=== PATIENT | male | born 1945 | race Caucasian/White ===

== ENCOUNTER 2023-06-20 14:54 | Inpatient (IN) | payer MEDICARE, OTHER, SELFPAY ==
[2023-06-20] VITALS (9 sets, daily range): BP systolic 129–182; BP diastolic 69–85; PULSE 74–81; RESP 18–23; TEMP 36.8–39.8; O2SAT 92–95; BMI 28.6; BMI 26.5
--- NOTE | 2023-06-20 15:24 | EKG12_ITS ---
Test Reason : Blood Pressure : / mmHG Vent. Rate : 079 BPM Atrial Rate : 000 BPM P-R Int : 000 ms QRS Dur : 144 ms QT Int : 404 ms P-R-T Axes : 000 005 011 degrees QTc Int : 463 ms Atrial fibrillation Right bundle branch block Abnormal ECG Confirmed by CANDY MARIE, DANE ([id number]), editor newspaper EMELIA QUEVEDO ([id number]) on 06/22/2023 1:25:25 PM Referred By: Confirmed By:DANE GUPTA MD
--- NOTE | 2023-06-20 15:25 | EDS_ITS ---
HPI History of Present Illness Chief Complaint: Hypertension Narrative Narrative: 78-year-old male in town for his brother's presenting with chest pain. He states the onset of the chest pain was about 9 AM this morning upon awakening. He describes it as a slap in the chest. It has been present all day in the center of his chest. He complained to his family of some right arm pain but he currently states it does not radiate from his chest to his arm. He is not lightheaded or dizzy although he does have a headache and he had some nausea earlier. Patient has not had any fevers, chills at home. Patient is a poor informant but his daughter gives pertinent history. He has a past medical history of agent orange exposure, A-fib, CHF, CAD, hypertension, diabetes, dementia, hyperlipidemia. Patient is on Eliquis. No black or bloody stools. Patient apparently has end-stage renal disease and had a peritoneal dialysis port placed 2 Wednesdays ago. The plan is for this to be used next week upon returning home. Patient denies any abdominal pain. He states his incision sites do not hurt. He still makes urine but denies dysuria or hematuria. Patient's daughter does state that he has had dyspnea on exertion for about 2 weeks which is progressively worse. She does not describe orthopnea. [facility] Medical History Peritoneal dialysis catheter in place Home Medications apixaban 5 mg tablet (Eliquis) 5 mg PO BID 06/20/23 [History Last Taken 06/20/23] atorvastatin 20 mg tablet 20 mg PO QHS 06/20/23 [History Last Taken 06/19/23] calcitriol 0.25 mcg capsule 0.25 mcg PO DAILY 06/20/23 [History Last Taken 06/20/23] donepezil 10 mg tablet 10 mg PO DAILY Memory 06/20/23 [History Last Taken 06/20/23] duloxetine 30 mg capsule,delayed release (Cymbalta) 30 mg PO DAILY 06/20/23 [History Last Taken 06/20/23] fenofibrate 150 mg capsule 145 mg PO DAILY 06/20/23 [History Last Taken ] ferrous sulfate 325 mg (65 mg iron) tablet 325 mg PO DAILY 06/20/23 [History Last Taken Unknown] furosemide 20 mg tablet 20 mg PO TID 06/20/23 [History Last Taken Unknown] hydralazine 100 mg tablet 100 mg PO TID 06/20/23 [History Last Taken Unknown] isosorbide mononitrate 30 mg tablet,extended release 24 hr 30 mg PO DAILY 06/20/23 [History Last Taken Unknown] metoprolol succinate 25 mg tablet,extended release 24 hr 25 mg PO DAILY 06/20/23 [History Last Taken Unknown] mirtazapine 30 mg tablet 30 mg PO QHS Depression 06/20/23 [History Last Taken 06/19/23] nifedipine 90 mg tablet,extended release 90 mg PO DAILY 06/20/23 [History Last Taken 06/20/23] primidone 50 mg tablet (Mysoline) 50 mg PO Q8H Blood pressur 06/20/23 [History Last Taken 06/20/23] Allergy/AdvReac Type Severity Reaction Status Date / Time No Known Allergies Allergy Verified 06/20/23 15:43 Social History Smoking Status: Never smoker ROS ROS ED Constitutional Constitutional ED: Denies chills or fever(s) Eyes Eyes: Denies change in vision ENT ENT ED: Denies rhinorrhea or sore throat Cardiovascular Cardiovascular: Reports chest pain Respiratory/Chest Respiratory/Chest: Reports cough and dyspnea Gastrointestinal Gastrointestinal: Reports diarrhea and nausea; Denies abdominal pain or vomiting Genitourinary Genitourinary ED: Denies dysuria or hematuria Musculoskeletal Musculoskeletal: Denies arthralgias or neck pain Integumentary Denies abscess Neurologic Neurologic: Reports headache(s); Denies paresthesias or weakness Psychiatric Psychiatric: Denies anxiety or depression EXAM Physical Exam Const Vital Signs: 06/20/23 14:57 06/20/23 15:10 06/20/23 15:42 Temperature 100.9 F H 103.6 F H Temperature Source Temporal Oral Pulse Rate 76 Respiratory Rate 19 H Respiratory Effort Short of Breath Respiratory Pattern Normal Blood Pressure 182/85 H Blood Pressure Mean 117 Pulse Ox 94 Oxygen Delivery Method Room Air 06/20/23 16:59 06/20/23 17:08 06/20/23 17:08 Temperature 98.3 F 100.8 F H Temperature Source Oral Temporal Pulse Rate 79 Respiratory Rate 19 H Respiratory Effort Respiratory Pattern Blood Pressure 157/76 H Blood Pressure Mean 103 Pulse Ox 92 Oxygen Delivery Method Room Air Positive well nourished General Appearance ED: NAD; Negative for pallor HEENT Reports moist mucous membranes Eyes PERRL and EOMs intact bilaterally General Eye ED: Negative for pale conjunctiva Neck no lymphadenopathy Chest Wall inspection of chest normal Resp Resp Narrative: Slightly tachypneic Effort and Inspection: Negative for retractions Auscultation: diminished lung sounds left lower Cardio regular rate and regular rhythm GI normal to inspection, nondistended, normoactive bowel sounds GI Narrative: Peritoneal dialysis catheter placed in the left side abdomen. No surrounding induration or erythema. Abdomen soft. No peritoneal signs. Dressings clean, dry, intact Extremity normal to inspection General Extremety ED: Negative for edema or tenderness General Extremity: Negative for edema Neuro oriented x3 and CN's II-XII intact bilaterally Sensorium / Orientation: alert Psych mental status grossly normal Skin no rashes or lesions noted General Skin Exam: Negative for jaundice or pallor MDM MDM MDM Narrative Medical decision making narrative: Patient presenting with fever, chest pain, shortness of breath x 2 weeks. Patient was at a and chest pain started. Is been present for about 6 hours prior to arrival. Differential includes ACS, CHF, A-fib, dehydration, electrolyte abnormalities, pneumonia, COVID, influenza, peritonitis, UTI. CBC was obtained to assess white blood cell count, hemoglobin, platelets. BMP to assess renal function, electrolytes, glucose. Liver function panel to assess for transaminitis. High-sensitivity troponin and delta troponin to assess for cardiac ischemia. EKG to assess for dysrhythmia/ischemia. Chest x-ray to rule out pneumonia. Urinalysis to rule out UTI. Patient's physical exam unremarkable. Other than some diminished breath sounds in left lung base. Abdomen soft nontender nondistended. There is no evidence of peritonitis. CBC shows white blood cell count of 10.4. Hemoglobin 10.0. Platelets 331. No comparison labs as patient is from out of town. Creatinine 4.38 consistent with end-stage renal disease. Calcium slightly high at 5.5. EKG was obtained and on my interpretation shows atrial fibrillation with a ventricular rate of 79 bpm without sign of ischemia or evidence of hyperkalemia on EKG. BNP elevated at 585. Urinalysis negative for infection. Patient's fever was treated with a gram of Tylenol. This did come down to 100.9. He felt better after the fever resolved. He was given IV fluids. COVID and influenza were negative. PCR COVID was sent and this is also negative. Chest x-ray my interpretation showed concern for left lower lobe infiltrate. The radiologist interprets this and agrees. We obtained a CT of the chest abdomen pelvis to rule out pneumonia or other acute abdominal pathology given the fever and the fairly normal workup so far. Chest CT did show left lower lobe pneumonia. The abdominal CT did not show anything acute. Given this I tried to ambulate the patient to see if he is hypoxic and he is too weak to stand. I discussed this with the hospitalist who felt patient could stay. Will start him on Zosyn for his pneumonia. This was d iscussed with his daughter and she is amenable to keeping him here. High- sensitivity troponin came back at 44 and delta troponin 56. Impression: 1. Chest pain 2. Febrile illness 3. Pneumonia 4. Debility 5. Hyperkalemia 6. End-stage renal disease Lab Data Labs: Laboratory Results - last 24 hr 06/20/23 06/20/23 06/20/23 15:00 16:32 18:00 WBC 10.4 RBC 3.01 L Hgb 10.0 L Hct 31.3 L MCV 104.0 H MCH 33.2 H MCHC 31.9 L RDW Std Deviation 50.4 H RDW Coeff of Johnathan 13.3 Plt Count 331 MPV 10.1 Immature Gran % (Auto) 0.300 Neut % (Auto) 89.2 H Lymph % (Auto) 1.9 L [place] % (Auto) 5.9 Eos % (Auto) 2.4 Baso % (Auto) 0.3 Absolute Neuts (auto) 9.3 H Absolute Lymphs (auto) 0.20 L Nucleated RBC % 0 Differential Comment SCANNED Sodium 136 Potassium 5.5 H Chloride 104 Carbon Dioxide 25.0 Anion Gap 7 BUN 80 H Creatinine 4.38 H Estim Creat Clear Calc 14.12 Est GFR (MDRD) Af Amer 17 L Est GFR (MDRD) Non-Af 14 L BUN/Creatinine Ratio 18.3 Glucose 125 H Calcium 9.2 Phosphorus 3.8 Magnesium 2.3 Total Bilirubin 0.50 Direct Bilirubin 0.16 AST 27 ALT 20 Alkaline Phosphatase 29 L Total Creatine Kinase 88 Troponin I High Sens 44 56 B-Natriuretic Peptide 595.6 H Total Protein 7.7 Albumin 3.5 Globulin 4.2 Urine Color Yellow Urine Clarity Clear Urine pH 6.0 Ur Specific [place] 1.015 Urine Protein 500 H Urine Glucose (UA) Normal Urine Ketones Negative Urine Occult Blood Negative Urine Nitrite Negative Urine Bilirubin Negative Urine Urobilinogen Normal Ur Leukocyte Esterase Negative Urine RBC 0 SEEN Urine WBC 0 SEEN Ur Squamous Epith Cells 0-5 SEEN Urine Bacteria 0 SEEN Hyaline Casts 0-5 SEEN Urine Mucus 0 SEEN Radiography Diagnostic Testing: Clinical Impression(s) from Imaging Studies Chest X-Ray 06/20/23 16:17 IMPRESSION: ASHD and mild hyperinflation. Probable left lower lobe atelectasis or infiltrate Electronically Signed: Pete Stinson MD at 16:48 EST , Chest/Abdomen/Pelvis CT 06/20/23 17:29 IMPRESSION: Mild left lower lobe atelectasis or infiltrate Nonspecific ileus with diffuse fecal retention in colon Diverticular disease of the descending and sigmoid colon without evidence for acute diverticulitis Multiple bilateral renal cysts several of which appear hemorrhagic. MRI would be helpful to exclude possibility of coexisting solid nodule. Electronically Signed: Pete Stinson MD at 18:36 EST , Discharge Plan Disposition Disposition: Acute Care Hospital [facility] Discharge Date/Time: 06/20/23 19:45
--- NOTE | 2023-06-20 15:30 | NURSING ---
NO OLD EKGS
[2023-06-20] MEDS: Acetaminophen 500 MG Tablet 1000 MG PO (15:40)
[2023-06-20 15:41] LABS: Absolute Neutrophil Count 9.3 X10^3/uL (2.0-7.7); Basophil# 0.03 X10^3/uL; Basophil% 0.3 % (0-1); Eosinophil# 0.25 X10^3/uL; Eosinophils% 2.4 % (0-5); Hematocrit 31.3 % (40-54); Lymphocyte % 1.9 % (19-41); Mean Corp Hgb Conc 31.9 g/dL (32-36); Mean Corpuscular Hgb 33.2 pg (27.0-32.0); Mean Platelet Vol. 10.1 fl (6.2-12.0); Monocyte# 0.61 X10^3/uL; Monocyte% 5.9 % (0-10); NRBC Flagged by Analyzer 0 % (0-5); Neutrophil # 9.29 X10^3/uL (2.7-7.7); Neutrophil % 89.2 % (47-70); POSITIVE DIFFERENTIAL YES; Platelet Count 331 K/mm3 (150-450); RBC Distribution Width CV 13.3 % (11.6-14.6); RBC Distribution Width SD 50.4 fl (35.1-43.9); Red Blood Count 3.01 M/mm3 (4.6-6.2); White Blood Count 10.4 K/mm3 (4.4-11.0)
[2023-06-20 15:49] LABS: Differential Indicated SCAN CRITERIA MET
[2023-06-20 15:53] LABS: AST(SGOT) 27 U/L (15-37); Alanine Aminotransfer ALT/SGPT 20 U/L (16-61); Albumin, Serum 3.5 g/dL (3.2-5.0); Alkaline Phosphatase 29 U/L (45-117); Anion Gap 7 (5-15); BUN 80 mg/dL (7-18); BUN/Creat Ratio 18.3 RATIO (10-20); Bilirubin, Direct 0.16 mg/dL (0.00-0.30); Calcium,Total 9.2 mg/dL (8.5-10.1); Chloride 104 mmol/L (98-107); Creatinine, Serum 4.38 mg/dL (0.70-1.30); EST Glomerular Filtration Rate 14 mL/min (>60); Est Glom Filt Rate - Afr Amer 17 mL/min (>60); Estimated Creatinine Clearance 14.12 ml/min; Globulin 4.2 g/dL (2.2-4.2); Glucose 125 mg/dL (74-106); Potassium 5.5 mmol/L (3.5-5.1); Protein, Total 7.7 g/dL (6.4-8.2); Sodium Level 136 mmol/L (136-145); Troponin-I HS (w/2H Reflex) 44 pg/mL (3.0-78.0)
--- NOTE | 2023-06-20 16:17 | RAD_ITS ---
STUDY: X-RAY CHEST REASON FOR EXAM: Male, 78 years old. chest pain TECHNIQUE: AP portable COMPARISON: None. FINDINGS: Lungs are hyperinflated. There is probable chronic interstitial scarring in the right lower lobe and mild left lower lobe atelectasis or infiltrate Heart is enlarged.. Normal mediastinum and gabbi. Normal visualized pulmonary arteries. Mildly calcified aortic arch and descending thoracic aorta. Dorsal spine demonstrates degenerative change. There is a shoulder prosthesis on the right and degenerative changes on the left. Normal visualized ribs, and clavicles. There is no demonstrated abnormality of the visualized soft tissue structures of the upper abdomen. RAD/Chest 1 View (Portable) IMPRESSION: ASHD and mild hyperinflation. Probable left lower lobe atelectasis or infiltrate Electronically Signed: Pete Stinson MD at 16:48 EST ,
[2023-06-20 16:20] LABS: Differential Comment SCANNED
[2023-06-20 16:38] LABS: Bacteria 0 SEEN /hpf (None Seen); Mucous, Urine 0 SEEN /hpf (<or=2+); Red Blood Cells-Urine 0 SEEN /hpf (0-5); White Blood Cells 0 SEEN /hpf (0-5)
[2023-06-20 16:40] LABS: Color, Urine Yellow (Yellow); Glucose, Dipstick Normal (Normal); Ketone-Dipstick Negative (Negative); Leukocyte Esterase-Dipstick Negative /ul (Negative); Nitrite-Dipstick Negative (Negative); Occult Blood-Urine Negative /ul (Negative); Protein-Dipstick 500 mg/dl (Negative); Specific Gravity, Urine 1.015 (1.002-1.030); Urine Bilirubin Dipstick Negative (Negative); Urine Clarity Clear (Clear); Urine Urobilinogen Normal (Normal)
[2023-06-20 16:50] LABS: BNP,B-Type NATRIURETIC PEPTIDE 595.6 pg/mL (0-100)
[2023-06-20 16:51] LABS: Hyaline Cast 0-5 SEEN /lpf (0-5); Squamous Epithelial Cells - UA 0-5 SEEN /hpf (0-5)
[2023-06-20] MEDS: Aspirin 81 MG TAB.CHEW 324 MG PO (16:55)
--- NOTE | 2023-06-20 17:29 | CT_ITS ---
STUDY: CT CHEST, ABDOMEN T PELVIS WITHOUT CONTRAST REASON FOR EXAM: Male, 78 years old. chest pain RADIATION DOSAGE (If Supplied By Facility): CTDIvol = ( 21.09 ) mGy, DLP = ( 1852.50 ) mGycm TECHNIQUE: Transaxial imaging was performed without the administration of intravenous contrast material. Individualized dose optimization techniques were used for this CT. COMPARISON: No relevant priors. FINDINGS: CHEST Mild left lower lobe atelectasis or infiltrate. There is no demonstrated pleural abnormality. Heart is enlarged and there is mild multivessel coronary artery calcification Normal mediastinum. Normal hilar regions. Normal unenhanced pulmonary arteries. Atherosclerotic change of the aorta without evidence for aneurysm Dorsal spine demonstrates advanced arthritic changes . ABDOMEN The visualized lung bases are unremarkable. The visualized portions of the heart are within normal limits. Normal liver. Normal gallbladder and extrahepatic biliary system. Normal spleen. Normal pancreas. Normal bilateral adrenal glands. No evidence for renal obstruction. There are multiple cysts of varying sizes bilaterally some of which appear hemorrhagic. Possibility of solid nodule cannot be entirely excluded . Normal visualized stomach. Mild nonspecific ileus with diffuse fecal retention in the colon Diverticular changes of the descending and sigmoid colon without evidence for acute diverticulitis.. No evidence for acute appendicitis. Atherosclerotic changes of the aorta without evidence for aneurysm. Normal inferior vena cava. Normal retroperitoneum. Dialysis catheter placement entering the left lower anterior abdominal wall with the catheter curling above the dome of the bladder PELVIS Poorly distended thick walled bladder of uncertain significance There is no pelvic fluid. There is no pelvic lymphadenopathy or mass lesion. Normal visualized pelvic arteries. Bilateral fat-containing inguinal hernias larger on the right.. Lumbar spine demonstrates degenerative changes CT/CT Chest, Abd, Pelvis WO Cont IMPRESSION: Mild left lower lobe atelectasis or infiltrate Nonspecific ileus with diffuse fecal retention in colon Diverticular disease of the descending and sigmoid colon without evidence for acute diverticulitis Multiple bilateral renal cysts several of which appear hemorrhagic. MRI would be helpful to exclude possibility of coexisting solid nodule. Electronically Signed: Pete Stinson MD at 18:36 EST ,
[2023-06-20 17:31] LABS: Reflex Troponin-HS? (from REC) Y
--- NOTE | 2023-06-20 17:46 | NURSING ---
x2 RNs attempted to assist pt to stand for ambulatory pulse ox, pt very unsteady, shaking, lightheaded- assisted pt back to bed, Dr. Romero made aware
[2023-06-20 18:31] LABS: Troponin-I HS 56 pg/mL (3.0-78.0)
--- NOTE | 2023-06-20 18:57 | HP.PCM.HOS_ITS ---
HPI - General General Date of Admission: 06/20/23 Date of Service: 06/20/23 Chief Complaint: Chest pain left-sided with high blood pressure and fever HPI Narrative MATY REDDY, is a 78 M with multiple comorbidities listed below who was bro ught to ED by EMS for chest pressure. Patient was then of his brother and was noticed to have uncontrollable shakes, he complained of mild chest pressure on the left side and of decreased responsiveness. History mainly taken from her daughter near the bedside. Her daughter said patient was often closing his eyes and was shaking. Patient himself poor historian at most described that it was like a heaviness on the left upper abdomen/left lower chest, localized without radiation, mild to moderate in quality without aggravating or relieving factor but gradually improving in ED. Patient has chronic right shoulder pain and had right shoulder replacement/surgery many years ago. Patient also gets dizzy lightheaded on standing up. EMS noted that patient had high blood pressure 228/108, heart rate 89. In ED patient was noticed to have high fever, Tmax 103 Fahrenheit. The daughter he was exposed to the agent orange in [place] about 40 years ago and since then his blood pressure fluctuates high and low and he is on 4 different antihypertensive medications. Recently nifedipine has been added and has been controlling better. As per the daughter he did not had recent acute sickness but I noticed cough. Patient had mild dyspnea on exertion for about 2 weeks progressively getting worse but denies orthopnea or PND. Past medical history: Uncontrolled hypertension, chronic A-fib on anticoagulant, dyslipidemia, anxiety and depression, ESRD dialysis catheter inserted about 2 weeks ago. He is not distended on dialysis. His daughter denies any history of cardiac stent/CT Mild hyperkalemia, K5.5 but EKG does not show acute tall T wave changes. Twelve-lead EKG individually reviewed and shows A-fib, RBBB, QRS 144 ms, QTc 463 ms. Similar EMS EKG. Labs and imaging reviewed and discussed in assessment and plan. [facility] Medical History Peritoneal dialysis catheter in place Home Medications apixaban 5 mg tablet (Eliquis) 5 mg PO BID 06/20/23 [History Last Taken 06/20/23] atorvastatin 20 mg tablet 20 mg PO QHS 06/20/23 [History Last Taken 06/19/23] calcitriol 0.25 mcg capsule 0.25 mcg PO DAILY 06/20/23 [History Last Taken 06/20/23] donepezil 10 mg tablet 10 mg PO DAILY Memory 06/20/23 [History Last Taken 06/20/23] duloxetine 30 mg capsule,delayed release (Cymbalta) 30 mg PO DAILY 06/20/23 [History Last Taken 06/20/23] fenofibrate 150 mg capsule 145 mg PO DAILY 06/20/23 [History Last Taken 06/20/23] ferrous sulfate 325 mg (65 mg iron) tablet 325 mg PO DAILY 06/20/23 [History Last Taken Unknown] furosemide 20 mg tablet 20 mg PO TID 06/20/23 [History Last Taken Unknown] hydralazine 100 mg tablet 100 mg PO TID 06/20/23 [History Last Taken Unknown] isosorbide mononitrate 30 mg tablet,extended release 24 hr 30 mg PO DAILY 06/20/23 [History Last Taken Unknown] metoprolol succinate 25 mg tablet,extended release 24 hr 25 mg PO DAILY 06/20/23 [History Last Taken Unknown] mirtazapine 30 mg tablet 30 mg PO QHS Depression 06/20/23 [History Last Taken 06/19/23] nifedipine 90 mg tablet,extended release 90 mg PO DAILY 06/20/23 [History Last Taken 06/20/23] primidone 50 mg tablet (Mysoline) 50 mg PO Q8H Blood pressur 06/20/23 [History Last Taken 06/20/23] Allergy/AdvReac Type Severity Reaction Status Date / Time No Known Allergies Allergy Verified 06/20/23 15:43 Social History Smoking Status: Never smoker ROS ROS Narrative Patient mild lethargic and mild forgetfulness, possible dementia therefore ROS mainly as from her daughter, contributed by the patient. Constitutional: Reports fatigue and weakness. Fever as described in HPI HEENT: Reports systems reviewed and no addt'l complaints, except as documented Respiratory/Chest: As described in HPI. No wheezing. Mild cough. CVS: As described in HPI Gastrointestinal: Denies coffee ground emesis, hematemesis or vomiting Genitourinary: No acute change in amount urine output. Denies burning urination or new urinary tract symptoms Musculoskeletal: Chronic left shoulder pain status post surgery. Denies acute joint pain or limited range of motion. No acute injury Neurologic: Denies seizure-like symptoms. Decreased responsiveness. skin: No ulcer. No rash Endocrinology: Reports systems reviewed and no addt'l complaints, except as documented Hematologic/Lymphatic: Reports systems reviewed and no addt'l complaints, except as documented Rest 14 ROS are negative except as mentioned in HPI. Vital Signs Vital Signs Vital Signs: 06/20/23 14:57 06/20/23 15:10 06/20/23 15:42 Temperature 100.9 F H 103.6 F H Temperature Source Temporal Oral Pulse Rate 76 Respiratory Rate 19 H Respiratory Effort Short of Breath Respiratory Pattern Normal Blood Pressure 182/85 H Blood Pressure Mean 117 Pulse Ox 94 Oxygen Delivery Method Room Air 06/20/23 16:59 06/20/23 17:08 06/20/23 17:08 Temperature 98.3 F 100.8 F H Temperature Source Oral Temporal Pulse Rate 79 Respiratory Rate 19 H Respiratory Effort Respiratory Pattern Blood Pressure 157/76 H Blood Pressure Mean 103 Pulse Ox 92 Oxygen Delivery Method Room Air Weight Weight: 199 lb 8 oz Body Mass Index (BMI) 28.6 Physical Exam Narrative General: Awake, alert but mild lethargy. Oriented x3, Cooperative HEENT: Atraumatic, PERRLA, EOMI, Normocephalic Oral: Oral mucosa dry. No Gingival or Mucosal Lesions/ Ulcerations Neck: Supple, No JVD, Negative Carotid Bruits Lungs: Air entry diminished in bilateral lung bases. No crepitation/rhonchi Cardiovascular: Irregular rate and rhythm, Normal S1, Normal S2, No murmurs Abdomen: Bowel Sounds Present, Soft, mild tenderness on right side but no guardi ng, rigidity or rebound tenderness. No tenderness on left side where peritoneal catheter is inserted. No peritoneal signs elicited. : Dialysis catheter. Not a started on dialysis yet. Dark urine. No renal angle tenderness. No suprapubic tenderness. Extremities: No edema, Capillary Refill Less than 3 Seconds Skin: No rashes, No breakdown Musculoskeletal: No Tenderness to Palpation of Joints or Extremities. Chronic right shoulder tenderness. Neurological: Cranial nerves II-XII grossly intact, DTR 2+/4. No acute focal neurological deficit. Psych/Mental Status: Flat affect. Possible amnesia/early dementia Results Lab / Micro Data 06/20/23 15:00 06/20/23 15:00 Labs: Laboratory Results - last 24 hr 06/20/23 15:00: WBC 10.4, RBC 3.01 L, Hgb 10.0 L, Hct 31.3 L, MCV 104.0 H, MCH 33.2 H, MCHC 31.9 L, RDW Std Deviation 50.4 H, RDW Coeff of Johnathan 13.3, Plt Count 331, MPV 10.1, Immature Gran % (Auto) 0.300, Neut % (Auto) 89.2 H, Lymph % (Auto) 1.9 L, [place] % (Auto) 5.9, Eos % (Auto) 2.4, Baso % (Auto) 0.3, Absolute Neuts (auto) 9.3 H, Absolute Lymphs (auto) 0.20 L, Nucleated RBC % 0, Differential Comment SCANNED, Sodium 136, Potassium 5.5 H, Chloride 104, Carbon Dioxide 25.0, Anion Gap 7, BUN 80 H, Creatinine 4.38 H, Estim Creat Clear Calc 14.12, Est GFR (MDRD) Af Amer 17 L, Est GFR (MDRD) Non-Af 14 L, BUN/Creatinine Ratio 18.3, Glucose 125 H, Calcium 9.2, Total Bilirubin 0.50, Direct Bilirubin 0.16, AST 27, ALT 20, Alkaline Phosphatase 29 L, Troponin I High Sens 44, B-Natriuretic Peptide 595.6 H, Total Protein 7.7, Albumin 3.5, Globulin 4.2 06/20/23 16:32: Urine Color Yellow, Urine Clarity Clear, Urine pH 6.0, Ur Specific [place] 1.015, Urine Protein 500 H, Urine Glucose (UA) Normal, Urine Ketones Negative, Urine Occult Blood Negative, Urine Nitrite Negative, Urine Bilirubin Negative, Urine Urobilinogen Normal, Ur Leukocyte Esterase Negative, Urine RBC 0 SEEN, Urine WBC 0 SEEN, Ur Squamous Epith Cells 0-5 SEEN, Urine Bacteria 0 SEEN, Hyaline Casts 0-5 SEEN, Urine Mucus 0 SEEN 06/20/23 18:00: Troponin I High Sens 56 Micro: Microbiology 06/20/23 15:36 Nasal Secretion SARS-CoV-2 & FLU Antigen (Rapid) - Final Imagaing Radiology Impression Chest X-Ray 06/20/23 16:17 IMPRESSION: ASHD and mild hyperinflation. Probable left lower lobe atelectasis or infiltrate Electronically Signed: Pete Stinson MD at 16:48 EST Reading Location ID and State: [facility] / [place] Tel [phone], Service support , Chest/Abdomen/Pelvis CT 06/20/23 17:29 IMPRESSION: Mild left lower lobe atelectasis or infiltrate Nonspecific ileus with diffuse fecal retention in colon Diverticular disease of the descending and sigmoid colon without evidence for acute diverticulitis Multiple bilateral renal cysts several of which appear hemorrhagic. MRI would be helpful to exclude possibility of coexisting solid nodule. Electronically Signed: Pete Stinson MD at 18:36 EST , Assessment & Plan Assessment/Plan (1) Pneumonia: QUALIFIERS: Pneumonia type: due to unspecified organism Laterality: left Lung location: lower lobe of lung Qualified Code(s): J18.9 - Pneumonia, unspecified organism (2) Chest pain: PLAN: Plan This 78-year-old gentleman admitted for left-sided chest pain and pneumonia 1. Atypical chest pain seems probably from left lower lobe pneumonia: Patient is being admitted to PCU. As per daughter, he does not have CAD or CHF but has cardiomegaly and chronic A-fib. 2 by sensitive troponins are negative therefore ACS unlikely. BNP elevated. Workup for pneumonia ordered including blood culture. Patient is started on broad-spectrum IV antibiotic Zosyn. Conservative/limited IV fluid protocol due to history of ESRD. Lactic acid ordered. Bronchodilator as needed ordered. 2. Chronic A-fib, elevated BNP with suspicion of heart failure, exact type, classification and severity unclear: Patient is out of his state, [place]. No prior medical record available to review. Chest extends chest, abdomen and pelvis without contrast reviewed. Does not show pulmonary edema but left lower lobe infiltrate. No pelvic fluid. Dialysis catheter and in the left lower anterior abdominal wall. 2D echo is ordered. Patient on Lasix 20 mg 3 times daily to start from tomorrow. 3. ESRD with recent peritoneal dialysis catheter about 2 weeks ago: Clinically do not appreciate signs of peritonitis. [place] vehicle dismantler is consulted. 4. Uncontrolled hypertension, dyslipidemia: Home medications continued. 5. Hyperglycemia: A1c ordered for tomorrow. No clear-cut diagnosis of diabetes mellitus. 6. Anxiety and depression and dementia: Patient on mirtazapine and donezepil. Patient is on primidone, indication unclear; listed as hypertension but is only given for epilepsy and essential tremor. DVT prophylaxis on apixaban 5 mg twice daily. Living will/advanced directive/end of life care: The patient is accompanied by her daughter. Patient does have living will or advanced directive. Her daughter, Ms. Lindsay near the bedside is power of relays draftsperson for health. After discussion of benefits/risks procedures involved with full code, DNR CC arrest and DNR CC, the patient and her daughter opted for full code. Patient does want artificial life support including intubation, tube feed, ventilator and/chest compression, central venous catheter, vasopressor and DC shock if needed Total time spent in [id number] encounter in discussion of advanced directive 17 minutes. Charges/Coding Visit Charges Inpatient E&M: 74846 Init Hosp L3 Procedures Hospitalists Procedures: 88873 Advncd Care Plan 30 Min
[2023-06-20] MEDS: Piperacil/Tazobactam 3.375 GM in 0.9% Normal Saline (50mL MB+) 50 ML IV (19:41)
[2023-06-20] MEDS: 0.9% Normal Saline (1000mL) 1,000 ML 50 ML IV (20:11)
[2023-06-20 20:13] LABS: CPK Total, Creatine Kinase 88 U/L (39-308); Magnesium 2.3 mg/dL (1.6-2.6); Phosphorus 3.8 mg/dL (2.5-4.9)
[2023-06-20] MEDS: Sodium Polystyrene Sulfonate 15 GM/60 ML UDC 30 GM PO (20:51)
[2023-06-20] MEDS: APIXABAN 5 MG TABLET PO (20:52)
[2023-06-20] MEDS: hydrALAZINE 50 MG Tablet 100 MG PO (20:52)
[2023-06-20] MEDS: Atorvastatin Calcium 20 MG Tablet PO (20:52)
[2023-06-20] MEDS: Mirtazapine 30 MG Tablet PO (20:53)
[2023-06-20] MEDS: guaiFENesin/D-Methorphan TAB.SR.12H 2 TABLET PO (20:53)
[2023-06-20] MEDS: Primidone 50 MG Tablet PO (20:53)
[2023-06-20] MEDS: DULoxetine Hcl 60 MG Capsule PO (20:58)
--- NOTE | 2023-06-20 21:29 | EKG12_ITS ---
Test Reason : CP Blood Pressure : / mmHG Vent. Rate : 076 BPM Atrial Rate : 000 BPM P-R Int : 000 ms QRS Dur : 158 ms QT Int : 438 ms P-R-T Axes : 000 -04 006 degrees QTc Int : 492 ms Atrial fibrillation Right bundle branch block Abnormal ECG When compared with ECG of 20-JUN-2023 22:04, MANUAL COMPARISON REQUIRED, DATA IS UNCONFIRMED Confirmed by CANDY MARIE, DANE ([id number]), editor at large EMELIA QUEVEDO ([id number]) on 06/23/2023 10:59:51 AM Referred By: Confirmed By:DANE GUPTA MD
[2023-06-20 21:46] LABS: M R Staph aureus DNA By PCR Negative (Negative); Probe Check PASS; Specimen Processing Control PASS
[2023-06-20 22:18] LABS: International Normalized Ratio 1.4; Partial Thromboplast Time 63.5 Seconds (24.1-36.2); Prothrombin Time (Protime)PT. 17.1 SECONDS (11.7-14.9)
[2023-06-20 22:37] LABS: Troponin-I HS 54 pg/mL (3.0-78.0)
[2023-06-20 22:47] LABS: Lactic Acid 2.3 mmol/L (0.4-1.9)
[2023-06-21] VITALS (13 sets, daily range): BP systolic 132–197; BP diastolic 68–95; PULSE 65–96; RESP 16–18; TEMP 36.3–37.2; O2SAT 95–99
[2023-06-21 02:04] LABS: Reflex Lactate? Y
[2023-06-21 02:48] LABS: Absolute Lymphocyte Count 0.46 X10^3/uL (0.83-4.51); Absolute Neutrophil Count 14.2 X10^3/uL (2.0-7.7); Basophil# 0.05 X10^3/uL; Basophil% 0.3 % (0-1); Eosinophil# 0.17 X10^3/uL; Eosinophils% 1.1 % (0-5); Hematocrit 27.8 % (40-54); Hemoglobin 8.8 g/dL (13.0-16.5); Lymphocyte # 0.46 X10^3/ul (0.83-4.51); Lymphocyte % 2.9 % (19-41); Mean Corp Hgb Conc 31.7 g/dL (32-36); Mean Corpuscular Hgb 33.5 pg (27.0-32.0); Mean Corpuscular Volume 105.7 fL (80-94); Mean Platelet Vol. 9.6 fl (6.2-12.0); Monocyte# 1.13 X10^3/uL; NRBC Flagged by Analyzer 0 % (0-5); Neutrophil # 14.22 X10^3/uL (2.7-7.7); Neutrophil % 88.1 % (47-70); POSITIVE DIFFERENTIAL YES; Platelet Count 238 K/mm3 (150-450); RBC Distribution Width CV 13.5 % (11.6-14.6); RBC Distribution Width SD 52.6 fl (35.1-43.9); Red Blood Count 2.63 M/mm3 (4.6-6.2); White Blood Count 16.1 K/mm3 (4.4-11.0)
[2023-06-21 03:04] LABS: Anion Gap 7 (5-15); BUN 81 mg/dL (7-18); BUN/Creat Ratio 18.3 RATIO (10-20); Chloride 108 mmol/L (98-107); Creatinine, Serum 4.42 mg/dL (0.70-1.30); EST Glomerular Filtration Rate 14 mL/min (>60); Est Glom Filt Rate - Afr Amer 17 mL/min (>60); Estimated Creatinine Clearance 13.99 ml/min; Glucose 123 mg/dL (74-106); Potassium 4.3 mmol/L (3.5-5.1); Sodium Level 139 mmol/L (136-145)
[2023-06-21 03:06] LABS: Lactic Acid 0.7 mmol/L (0.4-1.9)
[2023-06-21 03:11] LABS: Differential Indicated SCAN CRITERIA MET
[2023-06-21 03:14] LABS: Differential Comment SCANNED
[2023-06-21] MEDS: Primidone 50 MG Tablet PO ×3 (04:31→20:52)
[2023-06-21] MEDS: hydrALAZINE 20 MG/ML Vial 10 MG IV (04:31)
[2023-06-21] MEDS: hydrALAZINE 50 MG Tablet 100 MG PO ×3 (04:31→20:52)
[2023-06-21] MEDS: Ferrous Sulfate 325 MG Tablet PO (09:56)
[2023-06-21] MEDS: Furosemide 20 MG Tablet PO ×3 (09:56→20:53)
[2023-06-21] MEDS: Donepezil HCl 10 MG Tablet PO (09:56)
[2023-06-21] MEDS: DULoxetine Hcl 30 MG Capsule PO (09:56)
[2023-06-21] MEDS: APIXABAN 5 MG TABLET PO ×2 (09:56→20:53)
[2023-06-21] MEDS: NIFEdipine 90 MG Tablet PO (09:57)
[2023-06-21] MEDS: guaiFENesin/D-Methorphan TAB.SR.12H 2 TABLET PO ×2 (09:57→20:52)
[2023-06-21] MEDS: Isosorbide Mononitrate 30 MG Tablet PO (09:57)
[2023-06-21] MEDS: Calcitriol 0.25 MCG Capsule PO (09:58)
[2023-06-21] MEDS: Metoprolol(XL)Succ 25 MG Tablet PO (09:58)
[2023-06-21] MEDS: Fenofibrate 145 MG Tablet PO (09:59)
[2023-06-21] MEDS: Piperacil/Tazobactam 3.375 GM in 0.9% Normal Saline (50mL MB+) 50 ML IV ×2 (10:04→20:52)
[2023-06-21] MEDS: Ensure Plus High Protein 120 ML LIQUID PO (11:46)
--- NOTE | 2023-06-21 12:56 | PCM.PN.HOSP ---
Reason for Visit Reason for Visit: Chest pain Subjective Subjective Mr. Levine is an 78-year-old male who presented to the emergency department at [facility] on 06/20/2023 with chest pain. Evidently the symptoms started at about 9 AM on the morning of awakening. He reported it as feeling like a slap in the anterior chest and it had been present all day in the center of his chest. He had complained to his family about some right arm pain but at time of presentation his pain in his chest did not radiate at all. He denied lightheadedness or dizziness but did have a headache and some nausea earlier that day. He denied diaphoresis. He denied any fever or chills and is from out of town but local at the time for his brother's . He has a past medical history of atrial fibrillation, heart failure of unknown type, CAD, hypertension, diabetes, dementia, hyperlipidemia and chronic dialysis with peritoneal dialysis. The port was placed about 2 and half weeks prior to presentation. He had no symptoms of the abdominal wall on presentation. His daughter did indicate on presentation that his shortness of breath with exertion has progressively gotten worse and over the last 2 weeks but she did not describe any orthopnea. Upon EMS arrival he had a blood pressure of 228/108 with a heart rate of 89. In the emergency department he was noted to be febrile with a temperature of 103 degrees, heart rate was 76, blood pressure was 182/85, respiratory rate was 19 and oxygen saturations were 94% on room air. His CBC showed an anemia and a left shift with an 89.2% neutrophilia but no white count on presentation. This morning his white count is up to 16,000 and with an 88.1% neutrophilia. He is anemia which appears to be chronic and stable however previous labs for review are unavailable. His lactic acid on admission was 2.3 but has resolved with treatment and his BMP was unremarkable other than a chronically elevated BUN and creatinine from his CKD. BNP on arrival was 595. His cardiac enzymes have been cycled and have been unremarkable x 3 at 44, 56, 54. His urine was unremarkable. MRSA PCR was negative. COVID and flu are negative. Urine culture is negative thus far. Strep pneumo and Legionella antigens remain pending. COVID PCR is negative. Respiratory viral panel was unremarkable. Sputum culture has not yet been able to be obtained and blood cultures are pending. He was admitted with suspect of infection being pneumonia and placed on Zosyn for broad coverage. Tmax since admission has been 98.5 with no recurrent fever. States he is feeling better. States he lives in [facility] but is a true [place] [employer] fan. States he is coughing up a lot of sputum however his nurse indicated she had not heard him cough or had any productive cough as of yet. His daughter was at the bedside earlier but is not there currently unfortunately. Objective Data Objective Data Vital Signs: Vital Signs Temp Pulse Resp BP Pulse Ox O2 Del Method O2 Flow Rate 97.4 F L 77 16 132/68 H 97 CPAP 95 06/21/23 09:53 06/21/23 09:58 06/21/23 09:53 06/21/23 09:58 06/21/23 09:53 06/21/23 09:53 06/21/23 10:39 Oxygen Flow Rate (L/min) 95 Oxygen Delivery Method CPAP Weight: 84 kg Body Mass Index (BMI) 26.5 Intake & Output: Intake and Output for Last 24 Hours 06/19/23 06/20/23 06/21/23 23:59 23:59 23:59 Intake Total 290 / 290 1068.33 / 1068.33 Balance 290 / 290 1068.33 / 1068.33 Lab / Micro Data 06/21/23 02:35 06/21/23 02:35 Labs: Laboratory Results - last 24 hr 06/20/23 15:00: WBC 10.4, RBC 3.01 L, Hgb 10.0 L, Hct 31.3 L, MCV 104.0 H, MCH 33.2 H, MCHC 31.9 L, RDW Std Deviation 50.4 H, RDW Coeff of Johnathan 13.3, Plt Count 331, MPV 10.1, Immature Gran % (Auto) 0.300, Neut % (Auto) 89.2 H, Lymph % (Auto) 1.9 L, [place] % (Auto) 5.9, Eos % (Auto) 2.4, Baso % (Auto) 0.3, Absolute Neuts (auto) 9.3 H, Absolute Lymphs (auto) 0.20 L, Nucleated RBC % 0, Differential Comment SCANNED, Sodium 136, Potassium 5.5 H, Chloride 104, Carbon Dioxide 25.0, Anion Gap 7, BUN 80 H, Creatinine 4.38 H, Estim Creat Clear Calc 14.12, Est GFR (MDRD) Af Amer 17 L, Est GFR (MDRD) Non-Af 14 L, BUN/Creatinine Ratio 18.3, Glucose 125 H, Calcium 9.2, Total Bilirubin 0.50, Direct Bilirubin 0.16, AST 27, ALT 20, Alkaline Phosphatase 29 L, Troponin I High Sens 44, B-Natriuretic Peptide 595.6 H, Total Protein 7.7, Albumin 3.5, Globulin 4.2 06/20/23 16:32: Urine Color Yellow, Urine Clarity Clear, Urine pH 6.0, Ur Specific [place] 1.015, Urine Protein 500 H, Urine Glucose (UA) Normal, Urine Ketones Negative, Urine Occult Blood Negative, Urine Nitrite Negative, Urine Bilirubin Negative, Urine Urobilinogen Normal, Ur Leukocyte Esterase Negative, Urine RBC 0 SEEN, Urine WBC 0 SEEN, Ur Squamous Epith Cells 0-5 SEEN, Urine Bacteria 0 SEEN, Hyaline Casts 0-5 SEEN, Urine Mucus 0 SEEN 06/20/23 18:00: Phosphorus 3.8, Magnesium 2.3, Total Creatine Kinase 88, Troponin I High Sens 56 06/20/23 20:15: MRSA (PCR) Negative 06/20/23 21:29: PT 17.1 H, INR 1.4, APTT 63.5 H 06/20/23 21:59: Lactic Acid 2.3 H*, Troponin I High Sens 54 06/21/23 02:35: WBC 16.1 H, RBC 2.63 L, Hgb 8.8 L, Hct 27.8 L, MCV 105.7 H, MCH 33.5 H, MCHC 31.7 L, RDW Std Deviation 52.6 H, RDW Coeff of Johnathan 13.5, Plt Count 238, MPV 9.6, Immature Gran % (Auto) 0.600, Neut % (Auto) 88.1 H, Lymph % (Auto) 2.9 L, [place] % (Auto) 7.0, Eos % (Auto) 1.1, Baso % (Auto) 0.3, Absolute Neuts (auto) 14.2 H, Absolute Lymphs (auto) 0.46 L, Nucleated RBC % 0, Differential Comment SCANNED, Sodium 139, Potassium 4.3, Chloride 108 H, Carbon Dioxide 24.0, Anion Gap 7, BUN 81 H, Creatinine 4.42 H, Estim Creat Clear Calc 13.99, Est GFR (MDRD) Af Amer 17 L, Est GFR (MDRD) Non-Af 14 L, BUN/Creatinine Ratio 18.3, Glucose 123 H, Lactic Acid 0.7, Calcium 9.0 Micro: Microbiology 06/20/23 16:32 Urine, Clean Catch Urine Culture - Preliminary Culture exhibits no growth. 06/20/23 18:58 Mucosa - Nasopharyngeal Respiratory Panel (PCR) - Final 06/20/23 18:58 Mucosa - Nasopharyngeal Coronavirus COVID-19 PCR - Final 06/20/23 15:36 Nasal Secretion SARS-CoV-2 & FLU Antigen (Rapid) - Final Radiography Diagnostic Testing: Radiology Impression Chest X-Ray 06/20/23 16:17 IMPRESSION: ASHD and mild hyperinflation. Probable left lower lobe atelectasis or infiltrate Electronically Signed: Pete Stinson MD at 16:48 EST , Chest/Abdomen/Pelvis CT 06/20/23 17:29 IMPRESSION: Mild left lower lobe atelectasis or infiltrate Nonspecific ileus with diffuse fecal retention in colon Diverticular disease of the descending and sigmoid colon without evidence for acute diverticulitis Multiple bilateral renal cysts several of which appear hemorrhagic. MRI would be helpful to exclude possibility of coexisting solid nodule. Electronically Signed: Pete Stinson MD at 18:36 EST , Physical Exam Const alert, no apparent distress and well nourished Constitutional Narrative: Older, overweight, white male, lying in bed, appears comfortable nontoxic, oriented to self and place but not time, mild confusion HEENT head/scalp atraumatic and moist oral mucous membranes HEENT Narrative: Mallampati 3, no thrush Head and Scalp: normocephalic Resp normal respiratory effort, no retractions, no use of accessory muscles and No clear to auscultation bilaterally Resp Narrative: Diminished at left base with few crackles but clear otherwise Auscultation: crackles; Negative for rhonchi or wheezes Cardio regular rate, regular rhythm, S1 normal heart sound, S2 normal heart sound, no murmurs, no rub, no gallops and no clicks GI normal to inspection, nondistended, normoactive bowel sounds and soft to palpation GI Narrative: Mild tenderness due to recent surgery, surgical incisions are clean dry and intact and left-sided abdominal peritoneal dialysis catheter with no signs of infection Extremity Extremity Narrative: Trace bilateral lower extremity edema that is pitting, pedal pulses are 2+ and bounding, no cyanosis or clubbing Neuro CN's II-XII intact bilaterally, moves all extremities and no focal motor deficits Sensorium / Orientation: awake, alert, oriented to person and oriented to place Speech: speech normal Psych affect normal Psych Narrative: Pleasant, interacts appropriately, eye contact is good Assessment & Plan Assessment/Plan (1) Chest pain: (2) Pneumonia: QUALIFIERS: Pneumonia type: due to unspecified organism Laterality: left Lung location: lower lobe of lung Qualified Code(s): J18.9 - Pneumonia, unspecified organism (3) Constipation: (4) Leukocytosis: (5) Lactic acidosis: (6) Elevated brain natriuretic peptide (BNP) level: PLAN: Plan Left lower lobe pneumonia -Patient febrile with Tmax of 103 -Infiltrate noted on chest abdomen and pelvis -Cultures are pending -Continue Zosyn -MRSA PCR is negative -Rapid and PCR for COVID are unremarkable -Flu is unremarkable -Respiratory viral panel was unremarkable -Strep pneumo and Legionella to antigens are pending -Patient now with significant leukocytosis and left shift today Lactic acidosis -Resolved with treatment of the above Chest pain -Cardiac enzymes unremarkable -EKG with chronic A-fib but no ST-T wave changes -Highly doubt cardiac and likely related from pneumonia -Echocardiogram pending for tomorrow Constipation -CT of the abdomen and pelvis is consistent with ileus versus constipation -Large volume of stool noted -Start MiraLAX twice daily and monitor for stool output Elevated BNP -Patient is on end-stage renal disease with peritoneal dialysis catheter placed 2 weeks ago -No signs of peritonitis -Unclear of what to make of an elevated BNP in the setting of chronic renal disease -No significant signs of volume overload on chest today or CT of the chest -Continue home Lasix -Echocardiogram ordered and will be performed tomorrow End-stage renal disease -PD catheter placed 2 weeks ago -After nephrology consulted -Continue home calcitriol Chronic A-fib -Continue home apixaban -Continue home metoprolol Uncontrolled hypertension -Continue home nifedipine -Continue home metoprolol -Continue isosorbide mononitrate -Continue hydralazine -Continue home primidone -Continue Lasix -As needed hydralazine available for systolic greater than 160 Hyperlipidemia -Continue home atorvastatin Chronic anemia -Monitor with drop however suspect related to volume given on presentation -Continue home iron supplementation -Repeat CBC in a.m. Depression -Continue home mirtazapine Dementia -Continue home donezepil DVT prophylaxis -Continue apixaban CODE STATUS -Full code as per discussion on admission
[2023-06-21] MEDS: Ipratropium/Albuterol Sulfate 3 ML AMPUL.NEB INHALATION (13:42)
[2023-06-21] MEDS: DULoxetine Hcl 60 MG Capsule PO (20:52)
[2023-06-21] MEDS: Atorvastatin Calcium 20 MG Tablet PO (20:53)
[2023-06-21] MEDS: Mirtazapine 30 MG Tablet PO (20:53)
--- NOTE | 2023-06-21 21:27 | PCM.CONS.R ---
Assessment & Plan Assessment/Plan (1) Stage 4 chronic kidney disease: PLAN: CKD stage 5. last eGFR 14. recently had PD catheter placed about 2 weeks ago he says. was last flushed about 3-4 days ago. currently no abdomen pain, no abdomen tenderness. low suspicion for peritonitis for now but since he spiked fever, if there is no source we can send PD fluid for analysis. IV lasix as per primary. may need higher doses due to low GFR. HPI Consult Data Date of Consult: 06/21/23 HPI Narrative Reason for Consultation: CKD 5 HPI Narrative: MATY REDDY, is a 78 M who presents to the hospital with chest pain/discomfort and fevers. renal consulted in view of CKD 5. He is from [facility]. was visiting [place] attend a in the family. apparently developed these symptoms while he was in and brought into ER. currently feels somewhat better but still not very great historian. still makes urine. denies any urinary complaints. no edema. PD catheter placed about 2 weeks ago he says. FORMERLY [facility], [facility] Medical History (Updated 06/21/23 @ 13:[address] Kait Ashraf, DO) CPAP (continuous positive airway pressure) dependence Kidney disease Non-smoker Peritoneal dialysis catheter in place Sleep apnea Home Medications apixaban 5 mg tablet (Eliquis) 5 mg PO BID 06/20/23 [History Last Taken 06/20/23] atorvastatin 20 mg tablet 20 mg PO QHS 06/20/23 [History Last Taken 06/19/23] calcitriol 0.25 mcg capsule 0.25 mcg PO DAILY 06/20/23 [History Last Taken 06/20/23] donepezil 10 mg tablet 10 mg PO DAILY Memory 06/20/23 [History Last Taken 06/20/23] duloxetine 30 mg capsule,delayed release (Cymbalta) 30 mg PO DAILY 06/20/23 [History Last Taken 06/20/23] fenofibrate 150 mg capsule 145 mg PO DAILY 06/20/23 [History Last Taken 06/20/23] ferrous sulfate 325 mg (65 mg iron) tablet 325 mg PO DAILY iron supplement 06/20/23 [History Last Taken 06/20/23] furosemide 20 mg tablet 20 mg PO TID 06/20/23 [History Last Taken Unknown] hydralazine 100 mg tablet 100 mg PO TID 06/20/23 [History Last Taken Unknown] isosorbide mononitrate 30 mg tablet,extended release 24 hr 30 mg PO DAILY unknown 06/20/23 [History Last Taken 06/20/23] metoprolol succinate 25 mg tablet,extended release 24 hr 25 mg PO DAILY bp 06/20/23 [History Last Taken 06/20/23] mirtazapine 30 mg tablet 30 mg PO QHS Depression 06/20/23 [History Last Taken 06/19/23] nifedipine 90 mg tablet,extended release 90 mg PO DAILY 06/20/23 [History Last Taken 06/20/23] primidone 50 mg tablet (Mysoline) 50 mg PO Q8H Blood pressur 06/20/23 [History Last Taken 06/20/23] Allergy/AdvReac Type Severity Reaction Status Date / Time No Known Allergies Allergy Verified 06/20/23 15:43 Social History Smoking Status: Never smoker ROS ROS Narrative negative except above Physical Exam Narrative Alert awake oriented x 3 no obvious distress no pallor no icterus no JVD s1s2 no murmurs lungs clear abdomen soft no organomegaly no edema no cyanosis Lab / Micro Data 06/21/23 02:35 06/21/23 02:35 Labs: Laboratory Results - last 24 hr 06/20/23 20:15: MRSA (PCR) Negative 06/20/23 21:29: PT 17.1 H, INR 1.4, APTT 63.5 H 06/20/23 21:59: Lactic Acid 2.3 H*, Troponin I High Sens 54 06/21/23 02:35: WBC 16.1 H, RBC 2.63 L, Hgb 8.8 L, Hct 27.8 L, MCV 105.7 H, MCH 33.5 H, MCHC 31.7 L, RDW Std Deviation 52.6 H, RDW Coeff of Johnathan 13.5, Plt Count 238, MPV 9.6, Immature Gran % (Auto) 0.600, Neut % (Auto) 88.1 H, Lymph % (Auto) 2.9 L, [place] % (Auto) 7.0, Eos % (Auto) 1.1, Baso % (Auto) 0.3, Absolute Neuts (auto) 14.2 H, Absolute Lymphs (auto) 0.46 L, Nucleated RBC % 0, Differential Comment SCANNED, Sodium 139, Potassium 4.3, Chloride 108 H, Carbon Dioxide 24.0, Anion Gap 7, BUN 81 H, Creatinine 4.42 H, Estim Creat Clear Calc 13.99, Est GFR (MDRD) Af Amer 17 L, Est GFR (MDRD) Non-Af 14 L, BUN/Creatinine Ratio 18.3, Glucose 123 H, Lactic Acid 0.7, Calcium 9.0 Micro: Microbiology 06/21/23 13:50 Sputum, Expectorated/Coughed Gram Stain - Final 06/20/23 16:32 Urine, Clean Catch Urine Culture - Preliminary Culture exhibits no growth. 06/20/23 16:32 Urine, Clean Catch Legionella Antigen - Final 06/20/23 16:32 Urine, Clean Catch Streptococcus pneumoniae Antigen (M - Final 06/20/23 18:58 Mucosa - Nasopharyngeal Respiratory Panel (PCR) - Final 06/20/23 18:58 Mucosa - Nasopharyngeal Coronavirus COVID-19 PCR - Final 06/20/23 15:36 Nasal Secretion SARS-CoV-2 & FLU Antigen (Rapid) - Final
[2023-06-22] VITALS (10 sets, daily range): BP systolic 148–160; BP diastolic 70–82; PULSE 66–81; RESP 16–18; TEMP 36.3–37.6; O2SAT 92–100
--- NOTE | 2023-06-22 04:47 | CPS ---
Pt using sleep lab machine 12 [facility]
[2023-06-22] MEDS: Primidone 50 MG Tablet PO ×3 (04:55→21:36)
[2023-06-22] MEDS: hydrALAZINE 50 MG Tablet 100 MG PO ×3 (04:55→21:37)
[2023-06-22] MEDS: Furosemide 20 MG Tablet PO ×3 (04:55→21:37)
--- NOTE | 2023-06-22 05:55 | ECHOD_ITS ---
Reason For Study: ATRIAL FIBRILLATION/ATRIAL FLUTTER Procedure This was a 2D Doppler, Color Flow transthoracic echocardiogram. Exam performed portable in patient room. Left Ventricle Mild concentric left ventricular hypertrophy. The estimated ejection fraction is 55-60 %. Right Ventricle Normal right ventricle. Normal systolic function. Atria The left atrium is moderately enlarged. The right atrium is mildly enlarged. Mitral Valve The mitral valve is structurally normal. No prolapse or stenosis seen. Mild (1+) mitral valve insufficiency. Tricuspid Valve Normal tricuspid valve. Mild tricuspid valve insufficiency. Pulmonic Valve The pulmonic valve is not well visualized. Great Vessels Normal aortic root. Pericardium/Pleural No pericardial effusion. MMode/2D Measurements & Calculations LVIDd: 5.7 cm IVSd: 1.3 cm Ao root diam: 3.7 cm LVIDs: 3.3 cm LVPWd: 1.2 cm RVDd: 3.7 cm FS: 42.5 % LAV(MOD-bp): 145.9 ml LVAd ap4: 34.7 cm2 LVAd ap2: 31.1 cm2 LAV(MOD-bp) Indexed: 72.3 ml/m2 LVLd ap4: 9.5 cm LVLd ap2: 9.4 cm LAV(MOD-sp2): 146.6 ml EDV(MOD-sp4): 109.7 ml EDV(MOD-sp2): 89.4 ml LAV(MOD-sp4): 146.3 ml EDV(sp4-el): 107.8 ml EDV(sp2-el): 87.0 ml LVAs ap4: 15.7 cm2 LVAs ap2: 15.0 cm2 LVLs ap4: 6.7 cm LVLs ap2: 7.0 cm ESV(MOD-sp4): 33.2 ml ESV(MOD-sp2): 32.2 ml ESV(sp4-el): 31.5 ml ESV(sp2-el): 27.1 ml EF(MOD-sp4): 69.8 % EF(MOD-sp2): 64.0 % EF(sp4-el): 70.7 % SV(MOD-sp4): 76.5 ml SV(MOD-sp2): 57.2 ml SV(sp4-el): 76.2 ml LA dimension(2D): 5.4 cm LA A4 area: 36.2 cm2 RA A4 area: 35.1 cm2 TAPSE: 2.8 cm Doppler Measurements & Calculations MV E max olman: 92.0 cm/sec Lat Peak E' Olman: 13.1 cm/sec Med Peak E' Olman: 10.6 cm/sec E/E' lat: 7.1 E/E' med: 8.7 Ao V2 max: 158.4 cm/sec LV V1 max: 114.2 cm/sec PA V2 max: 122.8 cm/sec Ao max P.0 mmHg LV V1 max P.2 mmHg PA V2 mean: 91.6 cm/sec Ao V2 mean: 106.3 cm/sec LV V1 mean P.0 mmHg Ao mean P.3 mmHg LV V1 mean: 81.1 cm/sec Ao V2 VTI: 31.4 cm LV V1 VTI: 23.1 cm AV (velocity ratio): 0.73 TR max olman: 339.9 cm/sec TR max P.2 mmHg ECHO/Echo Complete Interpretation Summary The estimated ejection fraction is 55-60 %. Normal LV systolic function No prior study to compare Ordering Physician: Richard Nascimento Referring Physician: ELVIA PCP Performed By: Lawanda Drake RDCS, RVT
[2023-06-22 06:36] LABS: Absolute Lymphocyte Count 0.55 X10^3/uL (0.83-4.51); Absolute Neutrophil Count 6.2 X10^3/uL (2.0-7.7); Basophil# 0.04 X10^3/uL; Basophil% 0.5 % (0-1); Eosinophil# 0.49 X10^3/uL; Eosinophils% 5.9 % (0-5); Hematocrit 27.4 % (40-54); Hemoglobin 8.5 g/dL (13.0-16.5); Lymphocyte # 0.55 X10^3/ul (0.83-4.51); Lymphocyte % 6.7 % (19-41); Mean Corpuscular Hgb 32.9 pg (27.0-32.0); Mean Corpuscular Volume 106.2 fL (80-94); Mean Platelet Vol. 10.5 fl (6.2-12.0); Monocyte# 0.91 X10^3/uL; NRBC Flagged by Analyzer 0 % (0-5); Neutrophil # 6.24 X10^3/uL (2.7-7.7); Neutrophil % 75.5 % (47-70); POSITIVE DIFFERENTIAL YES; Platelet Count 227 K/mm3 (150-450); RBC Distribution Width CV 13.5 % (11.6-14.6); RBC Distribution Width SD 52.8 fl (35.1-43.9); Red Blood Count 2.58 M/mm3 (4.6-6.2); White Blood Count 8.3 K/mm3 (4.4-11.0)
[2023-06-22 06:42] LABS: Differential Indicated SCAN CRITERIA MET
[2023-06-22 06:46] LABS: Anion Gap 10 (5-15); BUN 77 mg/dL (7-18); BUN/Creat Ratio 18.1 RATIO (10-20); Calcium,Total 8.8 mg/dL (8.5-10.1); Chloride 109 mmol/L (98-107); Creatinine, Serum 4.25 mg/dL (0.70-1.30); EST Glomerular Filtration Rate 14 mL/min (>60); Est Glom Filt Rate - Afr Amer 17 mL/min (>60); Estimated Creatinine Clearance 14.55 ml/min; Glucose 131 mg/dL (74-106); Potassium 4.5 mmol/L (3.5-5.1); Sodium Level 140 mmol/L (136-145)
--- NOTE | 2023-06-22 08:50 | PN.HOSP_ITS ---
Reason for Visit Reason for Visit: Diagnoses Elevated white blood cell count, unspecified (06/20/23) Acidosis, unspecified (06/20/23) Pneumonia, unspecified organism (06/20/23) Constipation, unspecified (06/20/23) Chronic kidney disease, stage 4 (severe) (06/20/23) Chest pain, unspecified (06/20/23) Other specified abnormal findings of blood chemistry (06/20/23) Objective Data Objective Data Vital Signs: Vital Signs Temp Pulse Resp BP Pulse Ox O2 Del Method O2 Flow Rate 36.8 C 74 18 160/82 H 96 Room Air 95 06/22/23 04:55 06/22/23 04:55 06/22/23 04:55 06/22/23 04:55 06/22/23 04:55 06/22/23 07:30 06/21/23 10:39 FiO2 21 06/21/23 22:10 Oxygen Flow Rate (L/min) 95 Oxygen Delivery Method Room Air Weight: 84 kg Body Mass Index (BMI) 26.5 Intake & Output: Intake and Output for Last 24 Hours 06/20/23 06/21/23 06/22/23 23:59 23:59 23:59 Intake Total 290 / 290 2278.33 / 2278.33 410 / 410 Balance 290 / 290 2278.33 / 2278.33 410 / 410 Lab / Micro Data 06/22/23 05:25 06/22/23 05:25 Labs: Laboratory Results - last 24 hr 06/22/23 05:25: WBC 8.3, RBC 2.58 L, Hgb 8.5 L, Hct 27.4 L, MCV 106.2 H, MCH 32.9 H, MCHC 31.0 L, RDW Std Deviation 52.8 H, RDW Coeff of Johnathan 13.5, Plt Count 227, MPV 10.5, Immature Gran % (Auto) 0.400, Neut % (Auto) 75.5 H, Lymph % (Auto) 6.7 L, [place] % (Auto) 11.0 H, Eos % (Auto) 5.9 H, Baso % (Auto) 0.5, Absolute Neuts (auto) 6.2, Absolute Lymphs (auto) 0.55 L, Nucleated RBC % 0, Sodium 140, Potassium 4.5, Chloride 109 H, Carbon Dioxide 21.0, Anion Gap 10, BUN 77 H, Creatinine 4.25 H, Estim Creat Clear Calc 14.55, Est GFR (MDRD) Af Amer 17 L, Est GFR (MDRD) Non-Af 14 L, BUN/Creatinine Ratio 18.1, Glucose 131 H, Calcium 8.8 Micro: Microbiology 06/21/23 13:50 Sputum, Expectorated/Coughed Gram Stain - Final 06/20/23 16:32 Urine, Clean Catch Urine Culture - Preliminary Culture exhibits no growth. 06/20/23 16:32 Urine, Clean Catch Legionella Antigen - Final 06/20/23 16:32 Urine, Clean Catch Streptococcus pneumoniae Antigen (M - Baylee l 06/20/23 18:58 Mucosa - Nasopharyngeal Respiratory Panel (PCR) - Final 06/20/23 18:58 Mucosa - Nasopharyngeal Coronavirus COVID-19 PCR - Final 06/20/23 15:36 Nasal Secretion SARS-CoV-2 & FLU Antigen (Rapid) - Final Assessment & Plan Assessment/Plan (1) Chest pain: (2) Pneumonia: QUALIFIERS: Pneumonia type: due to unspecified organism Latera lity: left Lung location: lower lobe of lung Qualified Code(s): J18.9 - Pneumonia, unspecified organism (3) Constipation: (4) Leukocytosis: (5) Lactic acidosis: (6) Elevated brain natriuretic peptide (BNP) level: PLAN: Plan Left lower lobe pneumonia * Infiltrate noted on chest abdomen and pelvis * Cultures are pending * pip/tazo * MRSA PCR is negative-Rapid and PCR for COVID are unremarkable-Flu is unremarkable-Respiratory viral panel was unremarkable-Strep pneumo and Legionella to antigens are pending Lactic acidosis * Resolved Chest pain * Cardiac enzymes unremarkable-EKG with chronic A-fib but no ST-T wave changes- Highly doubt cardiac and likely related from pneumonia-Echocardiogram pending for tomorrow Constipation * CT of the abdomen and pelvis is consistent with ileus versus constipation * Large volume of stool noted * Start MiraLAX twice daily and monitor for stool output Elevated BNP * -Patient is on end-stage renal disease with peritoneal dialysis catheter placed 2 weeks ago-No signs of peritonitis-Unclear of what to make of an elevated BNP in the setting of chronic renal disease-No significant signs of volume overload on chest today or CT of the chest-Continue home Lasix- Echocardiogram ordered and will be performed tomorrow Chronic conditions: * End-stage renal disease-PD catheter placed 2 weeks ago-After nephrology consulted-Continue home calcitriol * Chronic M-ioy-Pnbtdpoa home apixaban -Continue home metoprolol * Uncontrolled hypertension-Continue home nifedipine, metoprolol, isosorbide mononitrate, hydralazine, primidone, Lasix-As needed hydralazine available * hyperlipidemia-Continue home atorvastatin * Chronic anemia-Monitor with drop however suspect related to volume given on presentation-Continue home iron supplementation-Repeat CBC in a.m. * Depression-Continue home mirtazapine * Dementia-Continue home donezepil DVT prophylaxis -Continue apixaban CODE STATUS -Full code as per discussion on admission
--- NOTE | 2023-06-22 08:50 | PCM.PN.HOSP ---
Subjective Subjective Breathing well. Had chest pain. Resolved with coughing. Objective Data Objective Data Vital Signs: Vital Signs Temp Pulse Resp BP Pulse Ox O2 Del Method O2 Flow Rate 36.8 C 74 18 160/82 H 96 Room Air 95 06/22/23 04:55 06/22/23 04:55 06/22/23 04:55 06/22/23 04:55 06/22/23 04:55 06/22/23 07:30 06/21/23 10:39 FiO2 21 06/21/23 22:10 Oxygen Flow Rate (L/min) 95 Oxygen Delivery Method Room Air Weight: 84 kg Body Mass Index (BMI) 26.5 Intake & Output: Intake and Output for Last 24 Hours 06/20/23 06/21/23 06/22/23 23:59 23:59 23:59 Intake Total 290 / 290 2278.33 / 2278.33 410 / 410 Balance 290 / 290 2278.33 / 2278.33 410 / 410 Lab / Micro Data 06/22/23 05:25 06/22/23 05:25 Labs: Laboratory Results - last 24 hr 06/22/23 05:25: WBC 8.3, RBC 2.58 L, Hgb 8.5 L, Hct 27.4 L, MCV 106.2 H, MCH 32.9 H, MCHC 31.0 L, RDW Std Deviation 52.8 H, RDW Coeff of Johnathan 13.5, Plt Count 227, MPV 10.5, Immature Gran % (Auto) 0.400, Neut % (Auto) 75.5 H, Lymph % (Auto) 6.7 L, [place] % (Auto) 11.0 H, Eos % (Auto) 5.9 H, Baso % (Auto) 0.5, Absolute Neuts (auto) 6.2, Absolute Lymphs (auto) 0.55 L, Nucleated RBC % 0, Sodium 140, Potassium 4.5, Chloride 109 H, Carbon Dioxide 21.0, Anion Gap 10, BUN 77 H, Creatinine 4.25 H, Estim Creat Clear Calc 14.55, Est GFR (MDRD) Af Amer 17 L, Est GFR (MDRD) Non-Af 14 L, BUN/Creatinine Ratio 18.1, Glucose 131 H, Calcium 8.8 Micro: Microbiology 06/21/23 13:50 Sputum, Expectorated/Coughed Gram Stain - Final 06/20/23 16:32 Urine, Clean Catch Urine Culture - Preliminary Culture exhibits no growth. 06/20/23 16:32 Urine, Clean Catch Legionella Antigen - Final 06/20/23 16:32 Urine, Clean Catch Streptococcus pneumoniae Antigen (M - Final 06/20/23 18:58 Mucosa - Nasopharyngeal Respiratory Panel (PCR) - Final 06/20/23 18:58 Mucosa - Nasopharyngeal Coronavirus COVID-19 PCR - Final 06/20/23 15:36 Nasal Secretion SARS-CoV-2 & FLU Antigen (Rapid) - Final Physical Exam Const alert and no apparent distress HEENT head/scalp atraumatic and moist oral mucous membranes Resp normal respiratory effort, no retractions, no use of accessory muscles and clear to auscultation bilaterally Cardio regular rate, regular rhythm and S1 normal heart sound GI normal to inspection, nondistended, normoactive bowel sounds Extremity normal to inspection Assessment & Plan Assessment/Plan (1) Chest pain: (2) Pneumonia: QUALIFIERS: Laterality: left Lung location: lower lobe of lung Pneumonia type: due to unspecified organism Qualified Code(s): J18.9 - Pneumonia, unspecified organism (3) Constipation: (4) Leukocytosis: (5) Lactic acidosis: (6) Elevated brain natriuretic peptide (BNP) level: PLAN: Plan Left lower lobe pneumonia Infiltrate noted on chest abdomen and pelvis Cultures are pending pip/tazo MRSA PCR is negative-Rapid and PCR for COVID are unremarkable-Flu is unremarkable-Respiratory viral panel was unremarkable-Strep pneumo and Legionella to antigens are pending Lactic acidosis Resolved Chest pain Cardiac enzymes unremarkable-EKG with chronic A-fib but no ST-T wave changes-Highly doubt cardiac and likely related from pneumonia- Echocardiogram pending Constipation CT of the abdomen and pelvis is consistent with ileus versus constipation Large volume of stool noted Start MiraLAX twice daily and monitor for stool output Elevated BNP -Patient is on end-stage renal disease with peritoneal dialysis catheter placed 2 weeks ago-No signs of peritonitis-Unclear of what to make of an elevated BNP in the setting of chronic renal disease-No significant signs of volume overload on chest today or CT of the chest-Continue home Lasix-Echocardiogram ordered and will be performed tomorrow Chronic conditions: End-stage renal disease-PD catheter placed 2 weeks ago-After nephrology consulted-Continue home calcitriol Chronic P-ics-Esqkzayt home apixaban -Continue home metoprolol Uncontrolled hypertension-Continue home nifedipine, metoprolol, isosorbide mononitrate, hydralazine, primidone, Lasix-As needed hydralazine available hyperlipidemia-Continue home atorvastatin Chronic anemia-Monitor with drop however suspect related to volume given on presentation-Continue home iron supplementation-Repeat CBC in a.m. Depression-Continue home mirtazapine Dementia-Continue home donezepil DVT prophylaxis -Continue apixaban CODE STATUS -Full code as per discussion on admission Plan for discharge pending echocardiogram. Patient is from [place], [place]. Charges/Coding Visit Charges Inpatient E&M: 35169 Subs Hosp L2
--- NOTE | 2023-06-22 09:01 | EKG12_ITS ---
Test Reason : CP ADMIT Blood Pressure : / mmHG Vent. Rate : 065 BPM Atrial Rate : 000 BPM P-R Int : 000 ms QRS Dur : 158 ms QT Int : 444 ms P-R-T Axes : 000 005 011 degrees QTc Int : 461 ms Atrial fibrillation Right bundle branch block Abnormal ECG When compared with ECG of 20-JUN-2023 15:42, MANUAL COMPARISON REQUIRED, DATA IS UNCONFIRMED Confirmed by CANDY MARIE, DANE ([id number]), editor in chief EMELIA QUEVEDO ([id number]) on 06/23/2023 11:00:21 AM Referred By: Confirmed By:DANE GUPTA MD
[2023-06-22 09:15] LABS: Differential Comment SCANNED
[2023-06-22] MEDS: APIXABAN 5 MG TABLET PO ×2 (09:19→21:37)
[2023-06-22] MEDS: guaiFENesin/D-Methorphan TAB.SR.12H 2 TABLET PO ×2 (09:19→21:36)
[2023-06-22] MEDS: Metoprolol(XL)Succ 25 MG Tablet PO (09:19)
[2023-06-22] MEDS: Calcitriol 0.25 MCG Capsule PO (09:19)
[2023-06-22] MEDS: Donepezil HCl 10 MG Tablet PO (09:19)
[2023-06-22] MEDS: DULoxetine Hcl 30 MG Capsule PO (09:19)
[2023-06-22] MEDS: Isosorbide Mononitrate 30 MG Tablet PO (09:20)
[2023-06-22] MEDS: Fenofibrate 145 MG Tablet PO (09:20)
[2023-06-22] MEDS: Ferrous Sulfate 325 MG Tablet PO (09:20)
[2023-06-22] MEDS: NIFEdipine 90 MG Tablet PO (09:20)
[2023-06-22] MEDS: Piperacil/Tazobactam 3.375 GM in 0.9% Normal Saline (50mL MB+) 50 ML IV ×2 (09:58→21:38)
--- NOTE | 2023-06-22 10:14 | PCM.PN.REN ---
Subjective Subjective Sitting in chair. Daughter at bedside. No overnight events. Reports feeling better today. States has been having multiple loose bowel movements. Objective Data Objective Data Vital Signs: Vital Signs Temp Pulse Resp BP Pulse Ox O2 Del Method O2 Flow Rate 97.3 F L 68 16 156/76 H 93 CPAP 95 06/22/23 09:08 06/22/23 09:19 06/22/23 09:08 06/22/23 09:19 06/22/23 09:50 06/22/23 09:11 06/21/23 10:39 FiO2 21 06/21/23 22:10 Oxygen Flow Rate (L/min) 95 Oxygen Delivery Method CPAP Weight: 84 kg Body Mass Index (BMI) 26.5 Intake & Output: Intake and Output for Last 24 Hours 06/20/23 06/21/23 06/22/23 23:59 23:59 23:59 Intake Total 290 / 290 2278.33 / 2278.33 410 / 410 Balance 290 / 290 2278.33 / 2278.33 410 / 410 Lab / Micro Data 06/22/23 05:25 06/22/23 05:25 Labs: Laboratory Results - last 24 hr 06/22/23 05:25: WBC 8.3, RBC 2.58 L, Hgb 8.5 L, Hct 27.4 L, MCV 106.2 H, MCH 32.9 H, MCHC 31.0 L, RDW Std Deviation 52.8 H, RDW Coeff of Johnathan 13.5, Plt Count 227, MPV 10.5, Immature Gran % (Auto) 0.400, Neut % (Auto) 75.5 H, Lymph % (Auto) 6.7 L, [place] % (Auto) 11.0 H, Eos % (Auto) 5.9 H, Baso % (Auto) 0.5, Absolute Neuts (auto) 6.2, Absolute Lymphs (auto) 0.55 L, Nucleated RBC % 0, Differential Comment SCANNED, Sodium 140, Potassium 4.5, Chloride 109 H, Carbon Dioxide 21.0, Anion Gap 10, BUN 77 H, Creatinine 4.25 H, Estim Creat Clear Calc 14.55, Est GFR (MDRD) Af Amer 17 L, Est GFR (MDRD) Non-Af 14 L, BUN/Creatinine Ratio 18.1, Glucose 131 H, Calcium 8.8 Micro: Microbiology 06/21/23 13:50 Sputum, Expectorated/Coughed Gram Stain - Final 06/20/23 16:32 Urine, Clean Catch Urine Culture - Preliminary Culture exhibits no growth. 06/20/23 16:32 Urine, Clean Catch Legionella Antigen - Final 06/20/23 16:32 Urine, Clean Catch Streptococcus pneumoniae Antigen (M - Final 06/20/23 18:58 Mucosa - Nasopharyngeal Respiratory Panel (PCR) - Final 06/20/23 18:58 Mucosa - Nasopharyngeal Coronavirus COVID-19 PCR - Final 06/20/23 15:36 Nasal Secretion SARS-CoV-2 & FLU Antigen (Rapid) - Final Physical Exam Narrative Alert awake oriented x 3 no obvious distress s1s2 no murmurs lungs clear abdomen soft, nontender. PD catheter intact with dressing clean and dry no edema Assessment & Plan Assessment/Plan (1) Stage 4 chronic kidney disease: PLAN: - CKD stage 5. last eGFR 14. recently had PD catheter placed about 2 weeks ago, last flushed on June 17. low suspicion for peritonitis. CT scan abdomen pelvis showed stool burden, on MiraLAX. Per daughter patient has follow-up appointment with nephrology and PD training. No acute indication for [employer] MANA[employer] at this time. Reviewed low potassium diet with patient and daughter - Left lower lobe infiltrate; on IV antibiotics. White count 10.4 on admission, peaked 16 yesterday and today white count 8.3. Patient has been afebrile over the last 12 hours. Blood cultures pending. Clinically improving. - Discussed nephrology plan with patient and his daughter. Questions answered. Patient to follow-up with his wire coater in [place] once return home.
--- NOTE | 2023-06-22 10:25 | CASEMGMT ---
RN CM Face to Face with patient for initial transition planning/care coordination assessment. RN CM introduced self and role at [facility]. Patient lying in bed, alert and oriented, daughter at bedside. Patient willing to participate in assessment and is able to answer all questions appropriately. Care providers, pharmacy, and demographics verified. Patient wishes to discharge home, denies need for home health at this time. Patient states he has no further needs or concerns at this time. CM to follow for discharge planning needs that may arise. PCP: Patient has PCP at home in [place] Specialists: none Preferred Pharmacy: [facility] Retail at discharge Insurance: [employer] Prescription Benefit: yes Living Will/HPOA: yes, daughter Angélica Pandya LNOK: daughter Living Arrangements: Patient lives with daughter in a 2 story home. Patient is independent and able to ambulate stairs. Transportation: daughter DME/HHC: Patient has shower chair, raised toilet, cane, grab bars, walker, rollator, cpap at home. No previous HHC or SNF Disposition Plan: Patient to discharge home with family support and follow-up plans in place. Tessy BUTTERFIELDN, RN, CM
[2023-06-22] MEDS: Atorvastatin Calcium 20 MG Tablet PO (21:36)
[2023-06-22] MEDS: DULoxetine Hcl 60 MG Capsule PO (21:37)
[2023-06-22] MEDS: Mirtazapine 30 MG Tablet PO (21:37)
[2023-06-22] MEDS: 0.9% Saline Lock 10 ML Syringe IV (21:38)
[2023-06-23] VITALS (7 sets, daily range): BP systolic 152–181; BP diastolic 81–92; PULSE 71–75; RESP 16; TEMP 36.7–37.1; O2SAT 93–98
--- NOTE | 2023-06-23 03:25 | CPS ---
Pt declined use of cpap tonight. RN aware.
[2023-06-23] MEDS: hydrALAZINE 50 MG Tablet 100 MG PO (05:52)
[2023-06-23] MEDS: Primidone 50 MG Tablet PO (05:53)
[2023-06-23] MEDS: Furosemide 20 MG Tablet PO (05:53)
[2023-06-23 06:04] LABS: Absolute Lymphocyte Count 0.56 X10^3/uL (0.83-4.51); Absolute Neutrophil Count 5.2 X10^3/uL (2.0-7.7); Basophil# 0.03 X10^3/uL; Basophil% 0.4 % (0-1); Eosinophil# 0.59 X10^3/uL; Eosinophils% 8.3 % (0-5); Hematocrit 26.6 % (40-54); Hemoglobin 8.4 g/dL (13.0-16.5); Lymphocyte # 0.56 X10^3/ul (0.83-4.51); Lymphocyte % 7.9 % (19-41); Mean Corp Hgb Conc 31.6 g/dL (32-36); Mean Corpuscular Hgb 33.2 pg (27.0-32.0); Mean Corpuscular Volume 105.1 fL (80-94); Mean Platelet Vol. 10.5 fl (6.2-12.0); Monocyte# 0.67 X10^3/uL; Monocyte% 9.5 % (0-10); NRBC Flagged by Analyzer 0 % (0-5); Neutrophil # 5.19 X10^3/uL (2.7-7.7); Neutrophil % 73.5 % (47-70); POSITIVE DIFFERENTIAL YES; Platelet Count 237 K/mm3 (150-450); RBC Distribution Width CV 13.3 % (11.6-14.6); Red Blood Count 2.53 M/mm3 (4.6-6.2); White Blood Count 7.1 K/mm3 (4.4-11.0)
[2023-06-23 06:19] LABS: Anion Gap 11 (5-15); BUN 83 mg/dL (7-18); BUN/Creat Ratio 19.1 RATIO (10-20); Calcium,Total 8.8 mg/dL (8.5-10.1); Chloride 108 mmol/L (98-107); Creatinine, Serum 4.34 mg/dL (0.70-1.30); EST Glomerular Filtration Rate 14 mL/min (>60); Est Glom Filt Rate - Afr Amer 17 mL/min (>60); Estimated Creatinine Clearance 14.25 ml/min; Glucose 112 mg/dL (74-106); Potassium 4.7 mmol/L (3.5-5.1); Sodium Level 140 mmol/L (136-145)
[2023-06-23 06:22] LABS: Differential Indicated SCAN CRITERIA MET
[2023-06-23 07:22] LABS: Differential Comment SCANNED
--- NOTE | 2023-06-23 07:51 | PN.HOSP_ITS ---
Subjective Subjective Coughing fit overnight. Breathing ok. Objective Data Objective Data Vital Signs: Vital Signs Temp Pulse Resp BP Pulse Ox O2 Del Method O2 Flow Rate 37.1 C 71 16 152/92 H 93 Room Air 95 06/23/23 03:51 06/23/23 05:52 06/23/23 03:51 06/23/23 05:52 06/23/23 03:51 06/23/23 03:51 06/21/23 10:39 FiO2 21 06/21/23 22:10 Oxygen Flow Rate (L/min) 95 Oxygen Delivery Method Room Air Weight: 84 kg Body Mass Index (BMI) 26.5 Intake & Output: Intake and Output for Last 24 Hours 06/21/23 06/22/23 06/23/23 23:59 23:59 23:59 Intake Total 2278.33 / 2278.33 2320 / 2320 170 / 170 Balance 2278.33 / 2278.33 2320 / 2320 170 / 170 Lab / Micro Data 06/23/23 05:05 06/23/23 05:05 Labs: Laboratory Results - last 24 hr 06/22/23 05:25: Differential Comment SCANNED 06/23/23 05:05: WBC 7.1, RBC 2.53 L, Hgb 8.4 L, Hct 26.6 L, MCV 105.1 H, MCH 33.2 H, MCHC 31.6 L, RDW Std Deviation 52.0 H, RDW Coeff of Johnathan 13.3, Plt Count 237, MPV 10.5, Immature Gran % (Auto) 0.400, Neut % (Auto) 73.5 H, Lymph % (Auto) 7.9 L, [place] % (Auto) 9.5, Eos % (Auto) 8.3 H, Baso % (Auto) 0.4, Absolute Neuts (auto) 5.2, Absolute Lymphs (auto) 0.56 L, Nucleated RBC % 0, Differential Comment SCANNED, Sodium 140, Potassium 4.7, Chloride 108 H, Carbon Dioxide 21.0, Anion Gap 11, BUN 83 H, Creatinine 4.34 H, Estim Creat Clear Calc 14.25, Est GFR (MDRD) Af Amer 17 L, Est GFR (MDRD) Non-Af 14 L, BUN/Creatinine Ratio 19.1, Gl ucose 112 H, Calcium 8.8 Micro: Microbiology 06/20/23 21:59 Blood Culture (Wb) - Right Hand Blood Culture - Preliminary No growth in 48 hours. 06/20/23 21:29 Blood Culture (Wb) - Anticubital Right Blood Culture - Preliminary No growth in 48 hours. 06/21/23 13:50 Sputum, Expectorated/Coughed Gram Stain - Final 06/21/23 13:50 Sputum, Expectorated/Coughed Respiratory Culture - Preliminary Appears to be normal respiratory tori. Further studies to follow. 06/20/23 16:32 Urine, Clean Catch Urine Culture - Preliminary Culture exhibits no growth. 06/20/23 16:32 Urine, Clean Catch Legionella Antigen - Final 06/20/23 16:32 Urine, Clean Catch Streptococcus pneumoniae Antigen (M - Final 06/20/23 18:58 Mucosa - Nasopharyngeal Respiratory Panel (PCR) - Final 06/20/23 18:58 Mucosa - Nasopharyngeal Coronavirus COVID-19 PCR - Final 06/20/23 15:36 Nasal Secretion SARS-CoV-2 & FLU Antigen (Rapid) - Final Radiography Diagnostic Testing: Radiology Impression Echocardiogram 06/22/23 05:55 Interpretation Summary The estimated ejection fraction is 55-60 %. Normal LV systolic function No prior study to compare Ordering Physician: Richard Nascimento Referring Physician: ELVIA PCP Performed By: Lawanda Drake, JENNIFER, RVT Physical Exam Const alert and no apparent distress Resp normal respiratory effort, no retractions, no use of accessory muscles and clear to auscultation bilaterally Cardio regular rate, regular rhythm, S1 normal heart sound and S2 normal heart sound GI normal to inspection, nondistended, normoactive bowel sounds and soft to palpation Neuro Sensorium / Orientation: awake and alert Assessment & Plan Assessment/Plan (1) Chest pain: (2) Pneumonia: QUALIFIERS: Laterality: left Lung location: lower lobe of lung Pneumonia type: due to unspecified organism Qualified Code(s): J18.9 - Pneumonia, unspecified organism (3) Constipation: (4) Leukocytosis: (5) Lactic acidosis: (6) Elevated brain natriuretic peptide (BNP) level: PLAN: Plan Left lower lobe pneumonia * Infiltrate noted on chest abdomen and pelvis * Cultures are pending * pip/tazo * MRSA PCR is negative-Rapid and PCR for COVID are unremarkable-Flu is unremarkable-Respiratory viral panel was unremarkable-Strep pneumo and Legionella to antigens are pending * Sputum culture showed mixed normal respiratory tori with no haemophilus, Streptococcus pneumonia, beta-hemolytic strep, or staph species. * Will discharge with amoxicillin/clavulanic acid. Discharged with Mucinex Lactic acidosis * Resolved Chest pain * Cardiac enzymes unremarkable-EKG with chronic A-fib but no ST-T wave changes- Highly doubt cardiac and likely related from pneumonia- * Echocardiogram shows EF 55-60%, normal LV function. Constipation * CT of the abdomen and pelvis is consistent with ileus versus constipation * Large volume of stool noted * Start MiraLAX twice daily and monitor for stool output Elevated BNP * -Patient is on end-stage renal disease with peritoneal dialysis catheter placed 2 weeks ago-No signs of peritonitis-Unclear of what to make of an eleva noris BNP in the setting of chronic renal disease-No significant signs of volume overload on chest today or CT of the chest-Continue home Lasix-Echocardiogram ordered and will be performed tomorrow Chronic conditions: * End-stage renal disease-PD catheter placed 2 weeks ago-After nephrology consulted-Continue home calcitriol * Chronic Q-kgm-Bkrurxke home apixaban -Continue home metoprolol * Uncontrolled hypertension-Continue home nifedipine, metoprolol, isosorbide mononitrate, hydralazine, primidone, Lasix-As needed hydralazine available * hyperlipidemia-Continue home atorvastatin * Chronic anemia-Monitor with drop however suspect related to volume given on presentation-Continue home iron supplementation-Repeat CBC in a.m. * Depression-Continue home mirtazapine * Dementia-Continue home donezepil DVT prophylaxis -Continue apixaban CODE STATUS -Full code as per discussion on admission Discharged home. Patient's daughter is here and will drive back to [place], [place].
[2023-06-23] MEDS: Donepezil HCl 10 MG Tablet PO (08:49)
[2023-06-23] MEDS: DULoxetine Hcl 30 MG Capsule PO (08:49)
[2023-06-23] MEDS: Ferrous Sulfate 325 MG Tablet PO (08:49)
[2023-06-23] MEDS: Isosorbide Mononitrate 30 MG Tablet PO (08:50)
[2023-06-23] MEDS: guaiFENesin/D-Methorphan TAB.SR.12H 2 TABLET PO (08:50)
[2023-06-23] MEDS: APIXABAN 5 MG TABLET PO (08:50)
[2023-06-23] MEDS: Calcitriol 0.25 MCG Capsule PO (08:51)
[2023-06-23] MEDS: NIFEdipine 90 MG Tablet PO (08:51)
[2023-06-23] MEDS: Fenofibrate 145 MG Tablet PO (08:52)
[2023-06-23] MEDS: Metoprolol(XL)Succ 25 MG Tablet PO (08:52)
--- NOTE | 2023-06-23 10:01 | DS.PCM_ITS ---
Providers Date of Admission: 06/20/23 Primary Care Physician: Jacqueline Primary Care Phys Consultations 06/20/23 19:53 Consult: Nephrology Routine Consulting Provider: Daniel David Reason for Consult: esrd with peritoneal catheter EMERGENT Consult: No MD Notified: Yes Date Notified: 06/20/23 Time Notified: 19:29 Method of Notification: Verbal Reason For Visit: CHEST PAIN Diagnosis Discharge Diagnosis (1) Chest pain: Status: Acute Code(s): R07.9 - Chest pain, unspecified (2) Pneumonia: Status: Acute Code(s): J18.9 - Pneumonia, unspecified organism Qualifiers: Pneumonia type: due to unspecified organism Laterality: left Lung location: lower lobe of lung Qualified Code(s): J18.9 - Pneumonia, unspecified organism (3) Constipation: Status: Acute Code(s): K59.00 - Constipation, unspecified (4) Leukocytosis: Status: Acute Code(s): D72.829 - Elevated white blood cell count, unspecified (5) Lactic acidosis: Status: Acute Code(s): E87.20 - Acidosis, unspecified (6) Elevated brain natriuretic peptide (BNP) level: Status: Acute Code(s): R79.89 - Other specified abnormal findings of blood chemistry Plan Left lower lobe pneumonia * Infiltrate noted on chest abdomen and pelvis * Cultures are pending * pip/tazo * MRSA PCR is negative-Rapid and PCR for COVID are unremarkable-Flu is unr emarkable-Respiratory viral panel was unremarkable-Strep pneumo and Legionella to antigens are pending * Sputum culture showed mixed normal respiratory tori with no haemophilus, Streptococcus pneumonia, beta-hemolytic strep, or staph species. * Will discharge with amoxicillin/clavulanic acid. Discharged with Mucinex Lactic acidosis * Resolved Chest pain * Cardiac enzymes unremarkable-EKG with chronic A-fib but no ST-T wave changes- Highly doubt cardiac and likely related from pneumonia- * Echocardiogram shows EF 55-60%, normal LV function. Constipation * CT of the abdomen and pelvis is consistent with ileus versus constipation * Large volume of stool noted * Start MiraLAX twice daily and monitor for stool output Elevated BNP * -Patient is on end-stage renal disease with peritoneal dialysis catheter placed 2 weeks ago-No signs of peritonitis-Unclear of what to make of an elevated BNP in the setting of chronic renal disease-No significant signs of volume overload on chest today or CT of the chest-Continue home Lasix- Echocardiogram ordered and will be performed tomorrow Chronic conditions: * End-stage renal disease-PD catheter placed 2 weeks ago-After nephrology consulted-Continue home calcitriol * Chronic C-ozj-Jcqjnyes home apixaban -Continue home metoprolol * Uncontrolled hypertension-Continue home nifedipine, metoprolol, isosorbide mononitrate, hydralazine, primidone, Lasix-As needed hydralazine available * hyperlipidemia-Continue home atorvastatin * Chronic anemia-Monitor with drop however suspect related to volume given on presentation-Continue home iron supplementation-Repeat CBC in a.m. * Depression-Continue home mirtazapine * Dementia-Continue home donezepil DVT prophylaxis -Continue apixaban CODE STATUS -Full code as per discussion on admission Discharged home. Patient's daughter is here and will drive back to [place], [place]. Medications at Discharge Home Medications apixaban 5 mg tablet (Eliquis) 5 mg PO BID 06/20/23 atorvastatin 20 mg tablet 20 mg PO QHS 06/20/23 calcitriol 0.25 mcg capsule 0.25 mcg PO DAILY 06/20/23 donepezil 10 mg tablet 10 mg PO DAILY Memory 06/20/23 duloxetine 30 mg capsule,delayed release (Cymbalta) 30 mg PO DAILY 06/20/23 fenofibrate 150 mg capsule 145 mg PO DAILY 06/20/23 ferrous sulfate 325 mg (65 mg iron) tablet 325 mg PO DAILY iron supplement 06/20/23 furosemide 20 mg tablet 20 mg PO TID 06/20/23 hydralazine 100 mg tablet 100 mg PO TID 06/20/23 isosorbide mononitrate 30 mg tablet,extended release 24 hr 30 mg PO DAILY unknown 06/20/23 metoprolol succinate 25 mg tablet,extended release 24 hr 25 mg PO DAILY bp 06/20/23 mirtazapine 30 mg tablet 30 mg PO QHS Depression 06/20/23 nifedipine 90 mg tablet,extended release 90 mg PO DAILY 06/20/23 primidone 50 mg tablet (Mysoline) 50 mg PO Q8H Blood pressur 06/20/23 albuterol sulfate 90 mcg/actuation aerosol inhaler 2 inh inhalation Q6H PRN shortness of breath or wheezing #6.7 grams 06/23/23 amoxicillin 875 mg-potassium clavulanate 125 mg tablet 1 tab PO Q12H #12 tabs 06/23/23 guaifenesin 600 mg tablet, extended release 12 hr (Mucinex) 600 mg PO Q12H #10 tabs 06/23/23 Hospital Course Operations None Procedures None Summary of Care Provided Minutes Spent on Discharge: 32 Weight / BMI Weight Weight: 84 kg Body Mass Index (BMI) 26.5 ABG / Lab / Microbiology Data 06/23/23 05:05 06/23/23 05:05 Laboratory: Laboratory Results - last 24 hr 06/23/23 05:05: WBC 7.1, RBC 2.53 L, Hgb 8.4 L, Hct 26.6 L, MCV 105.1 H, MCH 33.2 H, MCHC 31.6 L, RDW Std Deviation 52.0 H, RDW Coeff of Johnathan 13.3, Plt Count 237, MPV 10.5, Immature Gran % (Auto) 0.400, Neut % (Auto) 73.5 H, Lymph % (Auto) 7.9 L, [place] % (Auto) 9.5, Eos % (Auto) 8.3 H, Baso % (Auto) 0.4, Absolute Neuts (auto) 5.2, Absolute Lymphs (auto) 0.56 L, Nucleated RBC % 0, Differential Comment SCANNED, Sodium 140, Potassium 4.7, Chloride 108 H, Carbon Dioxide 21.0, Anion Gap 11, BUN 83 H, Creatinine 4.34 H, Estim Creat Clear Calc 14.25, Est GFR (MDRD) Af Amer 17 L, Est GFR (MDRD) Non-Af 14 L, BUN/Creatinine Ratio 19.1, Glucose 112 H, Calcium 8.8 Microbiology: Microbiology 06/21/23 13:50 Sputum, Expectorated/Coughed Gram Stain - Final 06/21/23 13:50 Sputum, Expectorated/Coughed Respiratory Culture - Preliminary 06/20/23 16:32 Urine, Clean Catch Urine Culture - Final Culture exhibits no growth. 06/20/23 16:32 Urine, Clean Catch Legionella Antigen - Final 06/20/23 16:32 Urine, Clean Catch Streptococcus pneumoniae Antigen (M - Final 06/20/23 21:59 Blood Culture (Wb) - Right Hand Blood Culture - Preliminary No growth in 48 hours. 06/20/23 21:29 Blood Culture (Wb) - Anticubital Right Blood Culture - Preliminary No growth in 48 hours. 06/20/23 18:58 Mucosa - Nasopharyngeal Respiratory Panel (PCR) - Final 06/20/23 18:58 Mucosa - Nasopharyngeal Coronavirus COVID-19 PCR - Final 06/20/23 15:36 Nasal Secretion SARS-CoV-2 & FLU Antigen (Rapid) - Final Radiography Diagnostic Testing: Radiology Impression Echocardiogram 06/22/23 05:55 Interpretation Summary The estimated ejection fraction is 55-60 %. Normal LV systolic function No prior study to compare Ordering Physician: Richard Nascimento Referring Physician: JACQUELINE PCP Performed By: Lawanda Drake RDCS, RVT D/C Instructions Discharge Diet: Renal Diet Meaningful Use Info Meaningful Use Diagnoses (Choose all that apply): None applicable Discharge Plan Admission Admit Date/Time: 06/20/23 18:59 Primary Reason for Your Visit: Pneumonia Attending Provider: Clifford Dye Primary Care Provider: Care Physician,No Primary Consulting Providers: Daniel David; Clifford Dye; Kait Ashraf Instructions Additional Instructions / Restrictions: You presented ill with a pneumonia. Please take antibiotics as instructed. You may also take Mucinex to help with coughing up the phlegm as well as an as needed albuterol if you get short of breath. Please follow-up with your primary care physician in the coming weeks for posthospital follow-up to ensure that you are overall improving. Also follow-up with your mainframe applications developer for initiation of your peritoneal dialysis. Discharge Orders/Prescriptions Prescriptions: New amoxicillin-pot clavulanate 875-125 mg tablet 1 tab PO Q12H Qty: 12 0RF guaifenesin [Mucinex] 600 mg tablet extended release 12hr 600 mg PO Q12H Qty: 10 0RF albuterol sulfate 90 mcg/actuation HFA aerosol inhaler 2 inh inhalation Q6H PRN (Reason: shortness of breath or wheezing) Qty: 6.7 0RF Continued mirtazapine 30 mg tablet 30 mg PO QHS nifedipine 90 mg tablet extended release 90 mg PO DAILY Eliquis 5 mg tablet 5 mg PO BID atorvastatin 20 mg tablet 20 mg PO QHS calcitriol 0.25 mcg capsule 0.25 mcg PO DAILY donepezil 10 mg tablet 10 mg PO DAILY duloxetine [Cymbalta] 30 mg capsule,delayed release(DR/EC) 30 mg PO DAILY Rx Instructions: 30 mg in am 60 mg in pm fenofibrate 150 mg capsule 145 mg PO DAILY ferrous sulfate 325 mg (65 mg iron) tablet 325 mg PO DAILY furosemide 20 mg tablet 20 mg PO TID hydralazine 100 mg tablet 100 mg PO TID isosorbide mononitrate 30 mg tablet extended release 24 hr 30 mg PO DAILY metoprolol succinate 25 mg tablet extended release 24 hr 25 mg PO DAILY primidone [Mysoline] 50 mg tablet 50 mg PO Q8H Referrals / Follow Up: Care Physician,No Primary [Primary Care Provider] - Within 2 Weeks Disposition Disposition (needs filled in before D/C Order can be placed): Home, Self Care Charges/Coding Visit Charges Inpatient E&M: 67710 Disch Hosp >30min
--- NOTE | 2023-06-23 10:35 | CASEMGMT ---
Patient has order for discharge. MAK LEE received call from [facility] retail that insurance is not in network. Out of pocket cost is $70. MAK LEE updated daughter, she states she has albuterol inhaler and mucinex with her. Daughter denied further questions or concerns. Daughter denies needs at discharge.
--- NOTE | 2023-06-23 11:11 | PHA.DC.MR.R ---
Pharmacy [place] Med Reconciliation Pharmacy Service has performed discharge medication reconciliation for this patient. Medication education papers prepared, patient discharged before I was able to counseling director. Medications reviewed. The patient's discharge medication list was reviewed for discrepancies and discrepancies were resolved. Medications at Discharge Home Medications apixaban 5 mg tablet (Eliquis) 5 mg PO BID 06/20/23 atorvastatin 20 mg tablet 20 mg PO QHS 06/20/23 calcitriol 0.25 mcg capsule 0.25 mcg PO DAILY 06/20/23 donepezil 10 mg tablet 10 mg PO DAILY Memory 06/20/23 duloxetine 30 mg capsule,delayed release (Cymbalta) 30 mg PO DAILY 06/20/23 fenofibrate 150 mg capsule 145 mg PO DAILY 06/20/23 ferrous sulfate 325 mg (65 mg iron) tablet 325 mg PO DAILY iron supplement 06/20/23 furosemide 20 mg tablet 20 mg PO TID 06/20/23 hydralazine 100 mg tablet 100 mg PO TID 06/20/23 isosorbide mononitrate 30 mg tablet,extended release 24 hr 30 mg PO DAILY unknown 06/20/23 metoprolol succinate 25 mg tablet,extended release 24 hr 25 mg PO DAILY bp 06/20/23 mirtazapine 30 mg tablet 30 mg PO QHS Depression 06/20/23 nifedipine 90 mg tablet,extended release 90 mg PO DAILY 06/20/23 primidone 50 mg tablet (Mysoline) 50 mg PO Q8H Blood pressur 06/20/23 albuterol sulfate 90 mcg/actuation aerosol inhaler 2 inh inhalation Q6H PRN shortness of breath or wheezing #6.7 grams 06/23/23 amoxicillin 875 mg-potassium clavulanate 125 mg tablet 1 tab PO Q12H #12 tabs 06/23/23 guaifenesin 600 mg tablet, extended release 12 hr (Mucinex) 600 mg PO Q12H #10 tabs 06/23/23
== END 2023-06-23 11:10 | disposition home or self-care (01) | DRG 193 ==
LOC: ED 19:10 → PCU 19:26
PROVIDERS: Internal Medicine; Admitting Provider Internal Medicine; Emergency Provider Student in an Organized Health Care Education/Training Program
DX: J18.9 Pneumonia, unspecified organism (principal); N18.6 End stage renal disease; I12.0 Hypertensive chronic kidney disease with stage 5 chronic kidney disease or end stage renal disease; E87.21 Acute metabolic acidosis; I48.20 Chronic atrial fibrillation, unspecified; D63.1 Anemia in chronic kidney disease; F03.90 Unspecified dementia, unspecified severity, without behavioral disturbance, psychotic disturbance, mood disturbance, and anxiety; F32.A Depression, unspecified; I25.10 Atherosclerotic heart disease of native coronary artery without angina pectoris; E78.5 Hyperlipidemia, unspecified; E87.5 Hyperkalemia; K59.00 Constipation, unspecified; E66.3 Overweight; Z68.26 Body mass index [BMI] 26.0-26.9, adult; Z77.098 Contact with and (suspected) exposure to other hazardous, chiefly nonmedicinal, chemicals; Z79.01 Long term (current) use of anticoagulants; Z79.899 Other long term (current) drug therapy
CPT/HCPCS: 36415; 71045; 71250; 74176; 80048; 80076; 81001; 82550; 83605; 83735; 83880; 84100; 84484; 85025; 85610; 85730; 87040; 87070; 87086; 87205; 87428; 87449; 87633; 87635; 87641; 93005; 93306; 94003; 94640; 94660; 94668; 94762; 97162; 97166; 97530; 97535; 97802; 99285; J7030; J7050; A4216